=== PATIENT | female | born 1950 | race Caucasian/White ===

== ENCOUNTER 2022-10-05 08:59 | Outpatient (CLI) | payer MEDICARE, SELFPAY ==
--- NOTE | 2022-10-05 09:15 | CRLHL7_ITS ---
For Patients: As a result of the Cures Act, medical imaging exams and procedure reports are released immediately into your electronic medical record. You may view this report before your referring provider. If you have questions, please contact your health care provider. BILATERAL SCREENING MAMMOGRAM WITH COMPUTER-AIDED DETECTION AND TOMOSYNTHESIS TECHNIQUE: CC and MLO views were obtained. These mammographic images have been obtained using full-field digital technique. These mammographic images were interpreted with the benefit of computer-aided detection. Breast Tomosynthesis was used in this interpretation. COMPARISON FILM: 09/01/21, 04/29/20, 10/28/18. FINDINGS: There are scattered areas of fibroglandular density IMPRESSION: There is no radiographic evidence for malignancy. ASSESSMENT: BI-RADS Category 1: Negative RECOMMENDATION: Routine screening mammogram in 1 year. A lay language report of this examination will be provided to the patient. Devin Reyes M.D. Diagnostic Radiologist [email or web address] RONY/tang Transcribed: 5:20 p.mRosie beckwith/Dictated by: Devin Reyes MD @ 10/05/2022 1:07:00 PM (Electronically Signed)
== END 2022-10-05 09:00 | disposition home or self-care (01) ==
LOC: MAMMO 09:00
PROVIDERS: PCP Family Medicine; Visit Provider Family Medicine
DX: Z12.31 Encounter for screening mammogram for malignant neoplasm of breast (principal)
CPT/HCPCS: 77063; 77067

== ENCOUNTER 2023-10-08 08:56 | Outpatient (CLI) | payer MEDICARE, SELFPAY ==
--- OUTSIDE RECORDS SUMMARY | 2023-10-08 08:59 | XMS_ITS | Encounter Summary ---
Author Organization [facility] Address [address] [place] [address]. [place] [address] Care Team Providers Care Heel Lift Gouger Name Role Phone Estrella Day MD Primary Care Provider [phone] Austin Lynn MD Unavailable Austin Lynn MD Unavailable Encounter Details Date Type Department Care Team (Latest Contact Info) Description 09/25/2023 Travel Social History Tobacco Use Types Packs/Day Years Used Date Smoking Tobacco: Former Cigarettes 1 15 1 981 - 1995 Smokeless Tobacco: Never Comments:quit 1995. 20 yr hi story, 1`ppd Alcohol Use Standard Drinks/Week Comments Yes 0 (1 standard drink = 0.6 oz pur e alcohol) occasional Adolescent Education Answer Date Record ed Getting School Help Needed Not on file 01/21 Sex and Gender Information Value Date Recorded Sex Assigned at Female 08/08/2022 4:45 PM CDT Gender Identity Female 08/08/2022 4:45 PM CDT Sexual Orientation Not on file documented as of this encounter Plan of Treatment Upcoming Encounters Date Type Department Care Team (Late Contact Info) Description 11/05/2023 7:30 AM CDT Office Visit [facility] [place] [address] [facility] [address] [place] [phone] Lina Resendiz, MACYC [address] [facility] [address] [place] [address] documented as of this encounter Visit Diagnoses Not on filedocumented in this encounter Care Teams Heel Lift Gouger Relationship Specialty Start Date End Date Estrella Day MD PCP - General Family Practice 05/01/14 Austin Lynn MD [address] [place] [id number] Cardiovascular Disease 05/23/22 Austin Lynn MD [address] [place] [id number] Assigned Heart and Vascular Provider 08/12/22 documented as of this encounter
--- OUTSIDE RECORDS SUMMARY | 2023-10-08 08:59 | XMS_ITS | Clinical Summary ---
Author Organization [facility] Address [address] [place] [address] Care Team Providers Care Floor Covering Layer Name Role Phone Unavailable Primary Care Provider Unavailabl e Source Comments PLEASE NOTE, if this patient is a minor, it may be UNLAWFUL to discuss sensitive information that is contained in these records (such as FAMILY PLANNING, MENTAL HEALTH or SUBSTANCE ABUSE) with the minor patient's parent or other person without the patient's specific authorization.[facility] Social History Tobacco Use Types Packs/Day Years Used Date Smoking Tobacco: Never Assessed Sex and Gender Information Value Date Recorded Sex Assigned at Not on file Gender Identity Not on file Sexual Orientation Not on file Plan of Treatment Not on file
--- OUTSIDE RECORDS SUMMARY | 2023-10-08 08:59 | XMS_ITS | Referral Summary ---
Author Organization [facility] Address [address] [place] [address] Care Team Providers Care Sr. Strategic Sourcing Manager Name Role Phone Estrella Day MD Primary Care Provider [phone] Austin Lynn MD Unavailable Austin Lynn MD Unavailable Lina Resendiz PA-C Unavailable Encounters Date Type Department Care Team Description 10/01/2023 Travel 09/25/2023 Travel 09/25/2023 7:20 AM CDT Lab [facility] [address] [place] [phone] Essential hypertension; Pure hypercholesterolemia 09/20/2023 Travel 09/10/2023 Refill [facility] [place] [address] [place] [phone] Austin Lynn MD Refill Request (Losartan) 09/06/2023 Refill [place] [address] [place] [phone] Austin Lynn MD Refill Request (Simvastatin and Metoprolol) from Last 3 Months Allergies No known active allergies Medications Medication Sig Dispensed Refills Start Date End Date Status multivitamin w/minerals (THERA-VIT-M) tablet Take 1 tablet by mouth daily Active Flaxseed, Linseed, (FLAX SEED OIL) 1000 MG capsule Take 1 capsule by mouth 2 times daily Active Cholecalciferol (VITAMIN D) 1000 UNITS capsule Take 1 capsule by mouth daily Active valACYclovir (VALTREX) 500 MG tablet Take 500 mg by mouth daily Active aspirin 81 MG EC tablet Take 81 mg by mouth every evening Active simvastatin (ZOCOR) 40 MG tabletIndications: Paroxysmal atrial fibrillation (H) Take 1 tablet (40 mg) by mouth at bedtime 90 tablet 09/06/2023 Active metoprolol tartrate (LOPRESSOR) 100 MG tabletIndications: Paroxysmal atrial fibrillation (H) Take 1 tablet (100 mg) by mouth 2 times daily 180 tablet 09/06/2023 Active losartan (COZAAR) 100 MG tabletIndications: Essential hypertension Take 1 tablet (100 mg) by mouth at bedtime Appointment required for further refills 90 tablet 09/10/2023 Active losartan (COZAAR) 100 MG tabletIndications: Essential hypertension Take 1 tablet (100 mg) by mouth At Bedtime Appointment required for further refills 90 tablet 3 09/20/2022 4 Discontinue d(Reorder (No AVS)) Active Problems Problem Noted Date Diagnosed Date Atrial fibrillation Hypertension Bruit Hyperlipidemia Overview: Diagnosis updated by automated process. Provider to review and confirm. Social History Tobacco Use Types Packs/Day Years Used Date Smoking Tobacco: Former Cigarettes 1 15 1 1 - 1995 Smokeless Tobacco: Never Comments:quit 1995. [...] PM CDT Sexual Orientation Not on file Last Filed Vital Signs Vital Sign Reading Time Taken Comments Blood Pressure 144/76 08/09/2022 4:04 PM CDT Pulse 60 08/09/2022 3:51 PM CDT Temperature - - Respiratory Rate - - Oxygen Saturation 99% 08/09/2022 3:47 PM CDT Inhaled Oxygen Concentration - - Weight 71.5 kg (157 lb 9.6 oz) 08/09/2022 3:47 P M CDT Height 167.6 cm (5' 6) 09/25/2023 7:35 AM CDT Body Mass Index 25.44 08/09/2022 3:47 PM CDT Plan of Treatment Upcoming Encounters Date Type Department Care Team (Late st Contact Info) Description 11/05/2023 7:30 AM CDT Office Visit [facility] [place] [address] [facility] [address] [place] [phone] Lina Resendiz PA-C [address] [facility] [address] [place] [address] Procedures Procedure Name Priority Date/Time Associated Diagnosis Comments ALT Routine 09/25/2023 7:31 AM CDT Pure hypercholesterolemia LIPID PROFILE Routine 09/25/2023 7:31 AM CDT Pure hypercholesterolemia BASIC METABOLIC PANEL Routine 09/25/2023 7:31 AM CDT Essential hypertension C DIAGNOSTIC MAMMO DIGITAL LEFT, INCL CAD WHEN PERF Routine 07/30/2009 1:49 PM CDT from Last 3 Months or Most Recently Relevant to Health Maintenance Results * Lipid Profile (09/25/2023 7:31 AM CDT) Cholesterol 163 <200 mg/dL 09/25/2023 11:44 AM CDT [facility] Triglycerides 76 <150 mg/dL 09/25/2023 11:44 AM CDT [facility] Direct Measure HDL 65 >=50 mg/dL 2023 11:44 AM CDT [facility] LDL Cholesterol Calculated 83 <=100 mg/dL 09/25/2023 11:44 AM CDT [facility] Non HDL Cholesterol 98 <130 mg/dL 09/25/2023 11:44 AM CDT [facility] Patient Fasting > 8hrs? Yes 09/25/2023 11:44 AM CDT [facility] Blood STRUCTURE OF LEFT UPPER LIMB / Unknown Venipuncture / Unknown 09/25/2023 7:31 AM CDT 09/25/2023 7:31 AM CDT Narrative LABORATORY - 09/25/2023 11:44 AM CDT Cholesterol Desirable: ??<200 mg/dL Triglycerides Normal: ??Less than 150 mg/dL Borderline High: ??150-199 mg/dL High: ??200-499 mg/dL Very High: ??Greater than or equal to 500 mg/dL Direct Measure HDL Female: ??Greater than or equal to 50 mg/dL Male: ??Greater than or equal to 40 mg/dL LDL Cholesterol Desirable: ??<100mg/dL Above Desirable: ??100-129 mg/dL Borderline High: ??130-159 mg/dL High: ??160-189 mg/dL Very High: ??>= 190 mg/dL Non HDL Cholesterol Desirable: ??130 mg/dL Above Desirable: ??130-159 mg/dL Borderline High: ??160-189 mg/dL High: ??190-219 mg/dL Very High: ??Greater than or equal to 220 mg/dL Austin Lynn MD LAB - BLOOD ORDERABL ES LABORATORY [facility] [place] [facility] [address] [facility], [address] [place] [address], [facility] [address], [address] [place] [address], [facility] [phone] * ALT (09/25/2023 7:31 AM CDT) ALT 17 0 - 50 U/L 09/25/2023 7:5 4 AM CDT LABORATORY Blood STRUCTURE OF LEFT UPPER LIMB / Unknown Venipuncture / Unknown 09/25/2023 7:31 AM CDT 09/25/2023 7:31 AM CDT Austin Lynn MD LAB - BLOOD ORDERABL ES LABORATORY [facility] [address], [address] [place] [address], [facility] [phone] * (ABNORMAL) Basic metabolic panel (09/25/2023 7:31 AM CDT) Sodium 135 135 - 145 mmol/L 09/25/2023 7:54 AM CDT LABORATORY Comment:Reference intervals for this test were updated on 01/02/2023 to more accurately reflect our healthy population. There may be differences in the flagging of prior results with similar values performed with this method. Interpretation of those prior results can be made in the context of the updated reference intervals. Potassium 5.2 3.4 - 5.3 mmol/L 09/25/2023 7:54 AM CDT LABORATORY Chloride 99 98 - 107 mmol/L 09/25/2023 7:54 AM CDT LABORATORY Carbon Dioxide (CO2) 27 22 - 29 mmol/L 09/25/2023 7:54 AM T LABORATORY Anion Gap 9 7 - 15 mmol/L 09/25/2023 7:54 AM CDT LABORATORY Urea Nitrogen 9.7 8.0 - 23.0 mg/dL 09/25/2023 7:54 AM CDT LABORATORY Creatinine 0.79 0.51 - 0.95 mg/dL 09/25/2023 7:54 AM CDT LABORATORY GFR Estimate 80 >60 mL/min/1. 73m2 09/25/2023 7:54 AM T LABORATORY Comment:eGFR calculated us2020 CKD-EPI equation. Calcium 9.8 8.8 - 10.2 mg/dL 09/25/2023 7:54 AM T LABORATORY Glucose 102(H) 70 - 99 mg/dL 09/25/2023 7:54 AM T LABORATORY Blood STRUCTURE OF LEFT UPPER LIMB / Unknown Venipuncture / Unknown 09/25/2023 7:31 AM CDT 09/25/2023 7:31 AM CDT Austin Lynn MD LAB - BLOOD ORDERABL ES LABORATORY [facility] [address], [address] [place] [address], [facility] [phone] * DIAGNOSTIC MAMMO DIGITAL LEFT (07/30/2009 1:49 PM CDT) Anatomical Region Laterality Modality Other 07/30/2009 1:49 PM CDT Impressions 07/30/2009 1:51 PM CDT DIAGNOSTIC MAMMOGRAM, LEFT DIGITAL w/CAD HISTORY/COMPARISON: ??Abnormal screening suggests nodule BREAST PARENCHYMAL PATTERN: Heterogeneously dense. FINDINGS: Possible nodular density suggested on the screening mammogram in the left breast is due to overlapping breast tissue. IMPRESSION: BI-RADS 1, NEGATIVE. Trinidad Frye MD SPECIAL I MAGING STUDIES from Last 3 Months or Most Recently Relevant to Health Maintenance Care Teams Sr. Strategic Sourcing Manager Relationship Specialty Start Date End Date Estrella Day MD PCP - General Family Practice 05/01/14 Austin Lynn MD [address] [place] [address] Cardiovascular Disease 05/23/22 Austin Lynn MD [address] [place] [address] Assigned Heart and Vascular Provider 08/12/22 Lina Resendiz PA-C [address] [place] [address] Physician Lawn Caretaker Cardiovascular Disease 09/28/23
--- OUTSIDE RECORDS SUMMARY | 2023-10-08 08:59 | XMS_ITS | Clinical Summary ---
Author Organization [facility] Address [place], [place] [address] Care Team Providers Care Investment Manager Name Role Phone Estrella Day MD Primary Care Prov ider Allergies No known active allergies Medications Medication Sig Dispensed Refills Start Date End Date Status penciclovir (DENAVIR) 1 % cream Apply topically to affected area(s) every 2 hours. 1 Tube 3 06/24/2010 Active multivitamin (MVI) tablet Take 1 tablet by mouth once daily. 0 05/02/2011 Active flaxseed oil 1,000 mg Cap Take 1 capsule by mouth once daily. 0 05/02/2011 Active pimecrolimus (ELIDEL) 1 % creamIndications:Eczema Apply topically to affected area(s) 2 times daily. 15 g 0 12/12/2013 Active metoprolol (LOPRESSOR) 100 mg tabletIndications:Essenti al hypertension TAKE ONE TABLET BY MOUTH TWICE DAILY 180 tablet 0 02/09/2015 Active simvastatin (ZOCOR) 40 mg tabletIndications:Pure hypercholesterolemia TAKE ONE TABLET BY MOUTH NIGHTLY AT BEDTIME 30 tablet 0 04/04/2015 Active aspirin chewable (REGINE CHEWABLE ASPIRIN) 81 mg chewable tablet Take 1 tablet by mouth once daily with a meal. 0 04/21/2015 Active estradioL (ESTRACE) 0.01% (0.1 mg/g) vaginal creamIndications:Vaginal dryness Insert 1 g into the vagina once weekly. 42.5 g 3 05/01/2022 Active losartan (COZAAR) 100 mg tabletIndications:Essenti al hypertension Take 1 Tablet (100 mg) by mouth once daily. 90 Tablet 3 09/27/2022 Active valACYclovir (VALTREX) 500 mg tabletIndications:Herpes Take 1 Tablet (500 mg) by mouth once daily. 90 Tablet 3 02/21/2023 Active Active Problems Problem Noted Date Diagnosed Date Skin cancer 01/16/2022 Overview: Unsure what type. 2018 followed by dermatology Right inside ankle Bruit 12/18/2019 Hyperlipidemia 12/18/2019 Overview: Overview: Diagnosis updated by automated process. Provider to review and confirm. Abnormal thyroid screen (blood) 05/25/2009 Other psoriasis 04/26/2007 Pure hypercholesterolemia 01/20/2006 HYPERTENSION - ESSENTIAL 07/02/2003 Atrial fibrillation 07/02/2003 Overview: Holiday heart HOT FLASHES 07/02/2003 ALOPECIA AREATA 05/02/2001 Resolved Problems Problem Noted Date Diagnosed Date Resolved Date ONYCHOMYCOSIS 07/02/2003 05/25/2009 Overview: right thumb- not cultured, but Dermatology thought this was the case Immunizations Name Administration Dates Next Due COVID-19 Vaccine Spikevax (M oderna 50mcg/0.5mL) 12YO+ 0170-6945 Formula PF 02/21/2023 COVID-19 vaccine (Moderna 10 0mcg/0.5mL) PF, MDV 06/21/2020 COVID-19 vaccine (Pfizer-Bio NTech 30mcg/0.3mL) 12YO+ BIVALENT PF, MDV 01/16/2022 Influenza, High-dose Inactivated 03/18/2019 Influenza, High-dose Quadriv alent Inactivated 12/09/2019 Influenza, Inactivated AIIV4 (Age 65+ Years) Preserv Free 02/21/2023,01/16/2022,01/13/2021 Pneumococcal Conj 20-valent (Prevnar 20) 022 Pneumococcal Poly,23-Valent (Pneumovax) 12/18/19 20 Td (Age >=7 Years) 03/28/2004 Tdap 04/26/2012,05/25/2009 Zoster (Shingrix-RZV, recombinant) 04/12/2020, Family History Medical History Relation Name Comments Other Brother kidney transpla nt congenital Heart Disease Father Mi - in 60's , etoh, smoked Other Mother MS Good Health Sister 1 Good Health Sister 2 Good Health Sister 3 Relation Name Status Comments Brother Father Mother Sister 1 Sister 2 Sister 3 Social History Tobacco Use Types Packs/Day Years Used Date Smoking Tobacco: Former Smokeless Tobacco: Never Tobacco Cessation:Counseling Given: Yes Comments:quit in Alcohol Use Standard Drinks/Week Comments Yes 0 (1 standard drink = 0.6 oz pur e alcohol) 1 glass of wine twice weekly PHQ-2 Answer Date Recorded PHQ-2 TOTAL SCORE 0 02/21/2023 Social Connections Answer Date Recorded Frequency of Communication with Friends and Fami ly Not on file 04/09/2021 Financial Resource Strain Answer Date R ecorded Difficulty of Paying Living Expenses Not on file 04/09/2021 Difficulty of Paying Living Expenses Not on file 04/09/2021 Sex and Gender Information Value Date Recorded Sex Assigned at Not on file Gender Identity Not on file Sexual Orientation Straight 05/01/2022 10 :31 AM BRAND MARKETING INTERN Obstetrics History Para Term AB IAB SAB Ectopic Multiple Livin g Live Births 3 3 0 3 0 0 0 0 3 Date Outcome GA Total Labor Labor/2nd/3rd Weight Sex Type Anes PTL Jannie A1 A5 Name Clin Comments 1 child given up for adoptio n. Last Filed Vital Signs Vital Sign Reading Time Taken Comments Blood Pressure 130/78 02/21/2023 1:05 PM BRAND MARKETING INTERN Pulse 59 02/21/2023 12:50 PM BRAND MARKETING INTERN Temperature 37.2 ??C (99 ??F) 11/25/2019 1:00 PM CDT Respiratory Rate 12 06/13/2010 8:25 AM BRAND MARKETING INTERN Oxygen Saturation 100% 02/21/2023 12:50 PM BRAND MARKETING INTERN Inhaled Oxygen Concentration - - Weight 71.5 kg (157 lb 9.6 oz) 02/21/2023 12:50 PM BRAND MARKETING INTERN Height 168 cm (5' 6.14) 02/21/2023 12:50 PM BRAND MARKETING INTERN Body Mass Index 25.33 02/21/2023 12:50 PM BRAND MARKETING INTERN Plan of Treatment Health Maintenance Due Date Last Done Comments DEXA/DXA scan for age 65+ 2017 Tetanus booster 04/26/2022 04/26/2012, 05/10, 03/28/2004 Mammogram for age 45-75 09/01/2022 09/02/19 22, 04/29/2020, 10/28/2018, Additional history exists COVID-19 vaccine series (2022- season) 2023 02/21/2023, 01/16/2022, 02/03/2021, Additional history exists Influenza for age 65+ 12/09/2023 02/21/2023 , 01/16/2022, 01/13/2021, Additional history exists BMI (ht and wt on same day) for age 18+ 02/22/2024 02/21/2023, 01/16/2022, 01/13/2021, Additional history exists Depression screening for age 12+ 02/22/2024 02/21/2023, 01/16/2022, 01/13/2021, Additional history exists Medicare Wellness for age 65+ 02/22/2024, 01/16/2022, 01/13/2021 Fecal testing non-DNA (FIT,FOBT,iFOBT) for age 45-75 04/06/2024 04/06/2023, 12/23/2019, 05/31/2016, Additional history exists Lipids for age 45-75 12/17/2024 12/18/2019, 04/16/2015, 12/09/2013, Additional history exists Tdap Completed 04/26/2012, 05/25/2009 Hepatitis C screening for ag e 18-79 Completed 12/18/2019 Zoster (shingles) series for age 50+ Completed 04/12/2020, 12/18/2019 Pneumococcal series for age 65+ Completed , 12/18/2019 Procedures Procedure Name Priority Date/Time Associated Diagnosis Comments OCCULT BLOOD IFOBT STOOL Routine 04/06/2023 7:34 AM BRAND MARKETING INTERN Screening for colon cancer SCAN-MAMMOGRAPHY REPORT 09/01/2021 12:00 AM CDT ANTI HCV Routine 12/18/2019 10:25 AM CDT Encounter for hepatitis C screening test for low risk patient LIPID PANEL Routine 12/18/2019 10:25 AM CDT Hyperlipidemia, unspecified hyperlipidemia type from Last 3 Months or Most Recently Relevant to Health Maintenance Results * OCCULT BLOOD IFOBT STOOL (04/06/2023 7:34 AM BRAND MARKETING INTERN) STOOL BLOOD ,IFOBT Negative Negative 04/13/2023 11:28 AM BRAND MARKETING INTERN [facility] Stool STOOL SPECIMEN / Unknown Non-Blood / Unknown 04/06/2023 7:34 AM BRAND MARKETING INTERN 04/12/2023 7:34 AM BRAND MARKETING INTERN Jailene [facility] [address] [place] [address], * SCAN-MAMMOGRAPHY REPORT (09/01/2021 12:00 AM CDT) Anatomical Region Laterality Modality Other Scanner OTHER * ANTI HCV (12/18/2019 10:25 AM CDT) Pathologist [facility] HEPATITIS C ANTIBODY Non-React stephanie Non-React stephanie 12/18/2019 6:15 PM CDT [facility] Comment:Antibodies to HCV no t detected; does not exclude the possibility of exposure to HCV. Blood BLOOD SPECIMEN / Unknown Venipuncture / Unknown 12/18/2019 10:25 AM CDT 12/18/2019 10:29 AM CDT Davina Finnegan MD SEND OUTS [facility] [address] [place] [address], [place] * LIPID PANEL (12/18/2019 10:25 AM CDT) Pathologist [facility] CHOLESTEROL,TOTAL 195 100 - 199 mg/dL 12/18/2019 5:54 PM CDT [facility] TRIGLYCERIDES 145 <150 mg/dL 12/18/2019 5:54 PM CDT [facility] HDL CHOLESTEROL 64 >40 mg/dL 0 5:54 PM CDT [facility] NON-HDL CHOLESTEROL 131 <145 mg/dl 12/18/2019 5:54 PM CDT [facility] CHOL/HDL RATIO 3.05 <4.50 12/18/2019 5:54 PM CDT [facility] LDL CHOLESTEROL 102 <=130 mg/dL 12/18/2019 5:54 PM CDT [facility] TR[facility] PROVIDER ORDERED STATUS RANDOM 12/18/2019 5:54 PM CDT [facility] Blood BLOOD SPECIMEN / Unknown Venipuncture / Unknown 12/18/2019 10:25 AM CDT 12/18/2019 10:29 AM CDT Davina Finnegan MD CHEMISTRY [facility] [address] [place] [address], from Last 3 Months or Most Recently Relevant to Health Maintenance Care Teams Investment Manager Relationship Specialty Start Date End Date Estrella Day MD [address] [place] [address] PCP - General Family Practice 04/26/11
--- OUTSIDE RECORDS SUMMARY | 2023-10-08 08:59 | XMS_ITS | Clinical Summary ---
Author Organization [facility] Address [address] [place] [address] Care Team Providers Care Bankruptcy Manager Name Role Phone Estrella Day MD Primary Care Provider [phone] Austin Lynn MD Unavailable [phone] Austin Lynn MD Unavailable Lina Resendiz PA-C Unavailable Allergies No known active allergies Medications Medication [...] for further refills 90 tablet 3 09/20/2022 Discontinue d(Reorder (No AVS)) Active Problems Problem Noted Date Diagnosed Date Atrial fibrillation Hypertension Bruit Hyperlipidemia Overview: Diagnosis updated by automated process. Provider to review and confirm. Encounters Date Type Department Care Team Description 10/01/2023 Travel 09/25/2023 7:20 AM CDT Lab [facility] [address] [place] [phone] Essential hypertension; Pure hypercholesterolemia 09/25/2023 Travel 09/20/2023 Travel 09/10/2023 Refill [facility] [address] [place] [phone] Austin Lynn MD Refill Request (Losartan) 09/06/2023 Refill [facility] [address] [place] [phone] Austin Lynn MD Refill Request (Simvastatin and Metoprolol) from Last 3 Months Family History Medical History Relation Comments Kidney Disease Brother transplant Coronary Artery Disease Father Relation Status Comments Brother Alive Father (Age 65) [place] Mother (Age 67) [place] Social History Tobacco Use Types Packs/Day Years [...] Description 11/05/2023 7:30 AM CDT Office Visit [facility] [place] [address] [place], [place] [phone] More, Lina Smith PA-C [address] [place] [id number] Health Maintenance Due Date Last Done Comments ADVANCE CARE PLANNING 1950 ANNUAL REVIEW OF HM ORDERS [address] CT COLONOGRAPHY 1950 DEXA 1950 FLEX SIG 1950 sDNA (Cologuard) 1950 COLONOSCOPY 1962 HEPATITIS C SCREENING 1970 LUNG CANCER SCREENING 2002 MAMMO SCREENING 07/31/2011 07/30/2009, 07/09, 07/27/2008, Additional history exists RSV VACCINE ( & 60+) (1 - 1-dose 60+ series) 2012 FALL RISK ASSESSMENT 2017 DTAP/TDAP/TD IMMUNIZATION (3 - Td or Tdap) 04/26/2022 04/26/2012, 05/25/2009, 03/28/2004 PHQ-2 (once per calendar year) 2023 COVID-19 Vaccine ( season) 2023 02/21/2023, 01/16/2022, 02/03/2021, Additional history exists MEDICARE ANNUAL WELLNESS VISIT 02/22/2024 02/21/2023, 01/16/2022, 01/13/2021, Additional history exists COLORECTAL CANCER SCREENING 04/06/2024 FIT 04/06/2024 04/06/2023 LIPID 09/24/2024 09/25/2023, 05/0 05/2022, 08/15/2021, Additional history exists GLUCOSE 09/24/2026 09/25/2023, 05/0 05/2022, 08/15/2021, Additional history exists ZOSTER IMMUNIZATION Completed 04/12/2020, Pneumococcal Vaccine: 65+ Years Completed 01/16/2022, 12/18/2019 INFLUENZA VACCINE Completed 02/21/2023, , 01/13/2021, Additional history exists HPV IMMUNIZATION Aged Out No longer e ligible based on patient's age to complete this topic IPV IMMUNIZATION Aged Out No longer e ligible based on patient's age to complete this topic MENINGITIS IMMUNIZATION Aged Out No l onger eligible based on patient's age to complete this topic RSV MONOCLONAL ANTIBODY Aged Out No l onger eligible based on patient's age to complete this topic Procedures Procedure Name Priority Date/Time Associated Diagnosis [...] > 8hrs? Yes 09/25/2023 11:44 AM CDT LABORATORY Blood STRUCTURE OF LEFT [...] Lynn MD LAB - BLOOD ORDERABL ES U LABORATORY [facility] [address] [facility] [facility] [address], [address] [place] [address], [facility] LABORATORY [facility] Lab [address] 1st floor, [address] [place] [address], [facility] [[email or web address]] [phone] * ALT (09/25/2023 7:31 AM CDT) ALT 17 0 - 50 U/L 09/25/2023 7:5 4 AM CDT LABORATORY Blood STRUCTURE OF LEFT UPPER LIMB / Unknown Venipuncture / Unknown 09/25/2023 7:31 AM CDT 09/25/2023 7:31 AM CDT Austin Lynn MD LAB - BLOOD ORDERABL ES LABORATORY [facility] [address] 1[address] floor, [address] [place] [address], [facility] [[email or web address]] [phone] * (ABNORMAL) Basic metabolic panel (09/25/2023 7:31 [...] 22 - 29 mmol/L 09/25/2023 7:54 AM CDT LABORATORY Anion Gap 9 7 - 15 mmol/L 09/25/2023 7:54 AM CDT LABORATORY Urea Nitrogen 9.7 8.0 - 23.0 mg/dL 09/25/2023 7:54 AM CDT LABORATORY Creatinine 0.79 0.51 - 0.95 mg/dL 09/25/2023 7:54 AM CDT LABORATORY GFR Estimate 80 >60 mL/min/1. 73m2 09/25/2023 7:54 AM CDT LABORATORY Comment:eGFR calculated usin 2020 CKD-EPI equation. Calcium 9.8 8.8 - 10.2 mg/dL 09/25/2023 7:54 AM T LABORATORY Glucose 102(H) 70 - 99 mg/dL 09/25/2023 7:54 AM [facility] LABORATORY Blood STRUCTURE OF LEFT UPPER LIMB / Unknown Venipuncture / Unknown 09/25/2023 7:31 AM CDT 09/25/2023 7:31 AM CDT Austin Lynn MD LAB - BLOOD ORDERABL ES SH LABORATORY [facility] Lab [address] 1st floor, [address] [place] [address], [facility] [[email or web address]] [phone] * DIAGNOSTIC MAMMO DIGITAL LEFT (07/30/2009 1:49 [...] Recently Relevant to Health Maintenance Care Teams Bankruptcy Manager Relationship Specialty Start Date End Date Estrella Day MD PCP - General Family Practice 05/01/14 Austin Lynn MD [address] [place] [phone] Cardiovascular Disease 05/23/22 Austin Lynn MD [address] [place] [address] Assigned Heart and Vascular Provider 08/12/22 Lina Resendiz PA-C [address] [place] [address] Physician Case Management Social Worker Cardiovascular Disease 09/28/23
--- OUTSIDE RECORDS SUMMARY | 2023-10-08 08:59 | XMS_ITS | Encounter Summary ---
Author Organization [facility] Address [address] [place] [address] Care Team Providers Care Vp Mobile Products Name Role Phone Estrella Day MD Primary Care Provider [phone] Austin Lynn MD Unavailable Austin Lynn MD Unavailable Lina Resendiz-C Unavailable Encounter Details Date Type Department Care Team (Latest Contact Info) Description 10/01/2023 Travel Social History Tobacco Use Types Packs/Day [...] Description 11/05/2023 7:30 AM CDT Office Visit [facility] [place] [address] [facility] [address] [place] [phone] Lina Resendiz PA-C [address] [facility] [address] [place] [address] documented as of this encounter Visit Diagnoses Not on filedocumented in this encounter Care Teams Vp Mobile Products Relationship Specialty Start Date End Date Estrella Day MD PCP - General Family Practice 05/01/14 Austin Lynn MD [address] [place] [address] Cardiovascular Disease 05/23/22 Austin Lynn MD [address] [place] [address] Assigned Heart and Vascular Provider 08/12/22 Lina Resendiz PA-C [address] [place], [place] [address] Physician Candy Separator Enrobing Cardiovascular Disease 09/28/23 documented as of this encounter
--- OUTSIDE RECORDS SUMMARY | 2023-10-08 09:00 | XMS_ITS | Encounter Summary ---
Author Organization [facility] Address [address] [place] [address]. [place] [address] Care Team Providers Care Pick Pulling Machine Tender Name Role Phone Estrella Day MD Primary Care Provider [phone] Austin Lynn MD Unavailable [phone] Austin Lynn MD Unavailable Reason for Visit * Reason Onset Date Comments Refill Request 09/10/2023 Losartan Encounter Details Date Type Department Care Team (Late st Contact Info) Description 09/10/2023 Refill [facility] [place] [phone] [facility] [address] [place] [address] Austin Lynn MD [address] [facility] [address] [place], [place] [phone] Refill Request (Losartan) Social History Tobacco Use Types Packs/Day Years [...] on file documented as of this encounter Miscellaneous Notes * Telephone Encounter - Fanny Bassett, RN - 09/10/2023 2:38 PM CDT [facility] Cardiology Refill Guideline reviewed. Medication meets criteria for refill. documented in this encounter Plan of Treatment Upcoming Encounters Date Type Department Care Team (Late st Contact Info) Description 11/05/2023 7:30 AM CDT Office Visit [facility] [place] [address] [facility] [address] [place] [address] Lina Resendiz PA-C [address] [place] [address] documented as of this encounter Visit Diagnoses Diagnosis Essential hypertension Unspecified essential hypertension documented in this encounter Care Teams Pick Pulling Machine Tender Relationship Specialty Start Date End Date Estrella Day MD PCP - General Family Practice 05/01/14 Austin Lynn MD [address] [place] [address] Cardiovascular Disease 05/23/22 Austin Lynn MD [address] [place] [address] Assigned Heart and Vascular Provider 08/12/22 documented as of this encounter
--- OUTSIDE RECORDS SUMMARY | 2023-10-08 09:00 | XMS_ITS | Encounter Summary ---
Author Organization [facility] Address [address] [place] [address] Care Team Providers Care Grader Operator Name Role Phone Estrella Day MD Primary Care Provider [phone] Austin Lynn MD Unavailable Cee Guerra APRN SERVICE CENTER MANAGER Unavailable [phone] Austin Lynn MD Unavailable Austin Lynn MD Unavailable Lina ResendizC Unavailable Encounter Details Date Type Department Care Team (Late st Contact Info) Description 04/21/2003 Office Visit-[facility] [address] [place] [address] Unknown, MD Reece Social History Tobacco Use Types Packs/Day Years Used Date Smoking Tobacco: Never Assessed Sex and Gender Information Value Date Recorded Sex Assigned at Female 08/08/2022 4:45 PM CDT Gender Identity Female 08/08/2022 4:45 PM CDT Sexual Orientation Not on file documented as of this encounter Progress Notes * Unknown, MD Reece - 04/23/2003 7:29 AM CST Progress Note Created by: Diana Little DATE: 04/21/2003 ZAKI ELLIOTT DATE OF : 1950 AGE: [age] years old Referring Physician: SANTHOSH CEBALLOS Referring Clinic: [facility] CURRENT DIAGNOSES 1. - Atrial Fibrillation, 427.31 2. - Hypertension, benign, 401.1 ALLERGIES NKA MEDICATIONS 1. Lo/Ovral 30 mcg-0.3 mg, Take as Directed 2. Metoprolol Tartrate 100 mg, 1 p.o. b.i.d. CHIEF COMPLAINTS Followup of Bp and Followup of Meds HISTORY OF PRESENT ILLNESS Ms. Elliott is a very delightful 52-year-old female who presents today for a follow up regarding hypertension and atrial fibrillation. She informs me that she has been seeing her primary doctor in follow up regarding hypertension, and her primary doctor instructed her to come back to Cardiology Clinic for further evaluation as her blood pressure has been in the 140s and 150s consistently when it is measured at the PMD's office. On initial presentation today, her blood pressure is 132/80. By my recheck it was 144/82. Our goal with this patient would be less than 135 over less than 85. She feelswell at this time and has not had any recurrence of atrial fibrillation. In addition, she brings inher lipid results for my review. The only number that was slightly elevated was her LDL at 160. Theremainder of her numbers are within normal limits. She denies the presence of any chest pain or pressure. No palpitations, syncope, presyncope, PND, orthopnea, or pedal edema. 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 EYES wears eye glasses/contact lenses EARS, NOSE, THROAT, MOUTH denies any hearing loss, epistaxis, hoarseness or difficulty speaking. RESPIRATORY denies dyspnea, snoring, cough, wheezing or hemoptysis. CARDIOVASCULAR negative for palpitations, chest pain, orthopnea, PND, peripheral edema, syncope or claudication. ABDOMINAL denies ulcer disease, hematochezia or melena. MUSCULOSKELETAL denies any history of venous insufficiency, arthritic symptoms or back problems. NEUROLOGICAL denies any history of recurrent strokes, TIA, or seizure disorder. PSYCHIATRIC denies any history of depression, substance abuse or change in cognitive functions. ENDOCRINE denies any history of weight change, heat/cold intolerance, polydipsia, or polyuria HEMATOLOGICAL/IMMUNOLOGIC denies any food allergies, seasonal allergies, bleeding disorders. PHYSICAL EXAMINATION VITAL SIGNS: Blood Pressure: 132/80 Sitting, Left arm, regular cuff 144/82 Retaken by FUNMILAYO Pulse- 64.00/min. Weight- 135.00 lbs. Height- 66.00 Temperature- .00 CONSTITUTIONAL cooperative, alert and oriented,well developed, well nourished, in no acute distress. SKIN warm and dry to touch, no apparent skin lesions, or masses noted. HEAD normocephalic, atraumatic EYES Pupils equal and round, conjunctivae and lids unremarkable, sclera white, no xanthalasma ENT no pallor or cyanosis, dentition good NECK carotid pulses are full and equal bilaterally, JVP normal, no carotid bruit, no thyromegaly CHEST clear to auscultation CARDIAC grade 1/6 systolic murmur heard best at the apex ABDOMEN abdomen soft, bowel sounds normoactive, no masses, no hepatosplenomegaly, non- tender, no bruits PERIPHERAL PULSES pulses full and equal in all extremities, no bruits auscultated. EXTREMITIES & BACK no clubbing, cyanosis or edema NEUROLOGICAL no gross motor deficits noted, affect appropriate, oriented to time, person and place. MEDICATIONS UPDATED TODAY: Metoprolol Tartrate 100 mg, 1 p.o. b.i.d., #60 MEDICATION STOPPED TODAY: Metoprolol Tartrate 50 Mg IMPRESSIONS/PLAN 1. Hypertension, currently under poor control. I will increase her metoprolol to 100 mg b.i.d. and ask that she continue to follow with her primary doctor for evaluation. She will contact our clinic on a p.r.n. basis. 2. Atrial fibrillation, currently under very good control. She has not had any recurrence. Willard Little. documented in this encounter Plan of Treatment Upcoming Encounters Date Type Department Care Team (Late st Contact Info) Description 11/05/2023 7:30 AM CDT Office Visit [facility] [address] [facility] [address] [place] [phone] Astrid, Lina Smith PA-C [address] [place] [address] [address] [place] [address] documented as of this encounter Visit Diagnoses Not on filedocumented in this encounter Care Teams Grader Operator Relationship Specialty Start Date End Date Estrella Day MD PCP - General Family Practice 05/01/14 Austin Lynn MD [address] [place] [address] Assigned Heart and Vascular Provider 01/30/20 08/20/21 Cee Guerra APRN CNP [address] [place] [address] Assigned Heart and Vascular Provider 08/21/21 07/07/22 Austin Lynn MD [address] [place] [address] Cardiovascular Disease 05/23/22 Austin Lynn MD [address] [place] [address] Assigned Heart and Vascular Provider 08/12/22 Lina Resendiz PA-C [address] [place], [place] [address] Physician Granite Sandblaster Apprentice Cardiovascular Disease 09/28/23 documented as of this encounter
--- OUTSIDE RECORDS SUMMARY | 2023-10-08 09:00 | XMS_ITS | Encounter Summary ---
Author Organization [facility] Address [address] [place] [address] Care Team Providers Care Pyrotechnic Mixer Name Role Phone Estrella Day MD Primary Care Provider [phone] Austin Lynn MD Unavailable [phone] Cee Guerra APRN PODIATRIC ASSISTANT Unavailable [phone] Austin Lynn MD Unavailable Austin Lynn MD Unavailable Lina ResendizC Unavailable Encounter Details Date Type Department Care Team (Late st Contact Info) Description 02/09/2005 Office Visit-[facility] [address] [place] [address] Unknown, MD Reece Social History Tobacco Use Types Packs/Day Years Used Date Smoking Tobacco: Never Assessed Sex and Gender Information Value Date Recorded Sex Assigned at Female 08/08/2022 4:45 PM CDT Gender Identity Female 08/08/2022 4:45 PM CDT Sexual Orientation Not on file documented as of this encounter Progress Notes * Unknown, MD Reece - 02/10/2005 3:14 PM CST Progress Note Created by: Taj Fortune M.D. DATE: 02/09/2005 ZAKI ELLIOTT DATE OF : 1950 AGE: [age] years old Referring Physician: SANTHOSH CEBALLOS Referring Clinic: [facility] CURRENT DIAGNOSES 1. - Atrial Fibrillation, 427.31 2. - Hypertension, benign, 401.1 ALLERGIES NKA MEDICATIONS (including any changes made today) 1. Lo/Ovral 30 mcg-0.3 mg, Take as Directed 2. Maribel-Dec Multiple Vitamins with Minerals, 1 p.o. q.d. 3. Metoprolol Tartrate 100 Mg, 1 p.o. b.i.d. 4. Lipitor 10 mg, 1 p.o. q.d. CHIEF COMPLAINTS Per MD - follow up HISTORY OF PRESENT ILLNESS Ms. Elliott is returning for refills on her medications. She has had a totally uneventful year with absolutely no sensations of arrhythmias. She remains quite confident she is exquisitely sensitive toepisodes of atrial fibrillation that have occurred multiple times locally as well as out of state. She has ended up in the emergency room and would just as soon avoid another repeat occurrence. She is perfectly content taking her metoprolol twice a day, has no side effects whatsoever. I offered isacc chance to either decrease her dose or stop it to test herself but she does not want to have any part of that because she is perfectly content taking her medicines. We also touched upon atrial fibrillation ablation in case she has read about this, reserving this for a period of time if and when she becomes refractory to medicine and becomes more symptomatic. Certainly the risk of the procedure outweighs any benefit at this point in time. She is now on Lipitor for hyperlipidemia. Her blood pressure is well controlled. She takes a 3 milewalk every day over the noon time and feels great. She sleeps well. There have been no other interval medical problems. 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 INTEGUMENTARY denies any change in hair or [...] disorders. PHYSICAL EXAMINATION VITAL SIGNS: Blood Pressure: / 110/70 Sitting, Left arm, regular cuff Pulse- 60.00/min. Weight- 142.00 lbs. Height- 66.00 Temperature- .00 CONSTITUTIONAL cooperative, [...] carotid bruit, no thyromegaly CHEST clear to auscultation, mild parasternal tenderness to palpations CARDIAC grade 1/6 systolic murmur heard best at the apex ABDOMEN abdomen soft, bowel sounds normoactive, no masses, no hepatosplenomegaly, non- tender, no bruits <FONT COLOR=#[id number]><FONT POINT=10> PERIPHERAL PULSES pulses full and equal in all extremities, no bruits auscultated. EXTREMITIES & BACK no clubbing, cyanosis or edema NEUROLOGICAL no gross motor deficits noted, affect appropriate, oriented to time, person and place. MEDICATIONS UPDATED TODAY: Metoprolol Tartrate 100 Mg, 1 p.o. b.i.d., #60 Lipitor 10 mg, 1 p.o. q.d., DIRECTED IMPRESSIONS/PLAN <FONT COLOR=#[id number]><FONT POINT=10> 1. Well controlled hypertension. 2. History of episodic atrial fibrillation possibly stress related but again well controlled on beta-blockers where she would like to stay on them. PLAN: 1. Metoprolol was renewed. 2. I will not plan on seeing her other than for her medication refills unless requested or if she should have any interval problems. <FONT COLOR=#[id number]><FONT POINT=10> TODAYS ORDERS 1. F/U with Sherin or Alexia for rx refills Taj Fortune M.D. documented in this encounter Plan of Treatment Upcoming Encounters Date Type Department Care Team (Late st Contact Info) Description 11/05/2023 7:30 AM CDT Office Visit [facility] [place] [address] [place] [phone] Lina Resendiz PA-C [address] [place] [phone] documented as of this encounter Visit Diagnoses Not on filedocumented in this encounter Care Teams Pyrotechnic Mixer Relationship Specialty Start Date End Date Estrella Day MD PCP - General Family Practice 05/01/14 Austin Lynn MD [address] [place] [address] Assigned Heart and Vascular Provider 01/30/20 08/20/21 Cee Guerra APRN PODIATRIC ASSISTANT [address] [place] [address] Assigned Heart and Vascular Provider 08/21/21 07/07/22 Austin Lynn MD [address] [place] [address] Cardiovascular Disease 05/23/22 Austin Lynn MD [address] [place] [phone] Assigned Heart and Vascular Provider 08/12/22 Lina Resendiz PA-C [address] [place] [address] Physician Dedicated Driver Cardiovascular Disease 09/28/23 documented as of this encounter
--- OUTSIDE RECORDS SUMMARY | 2023-10-08 09:00 | XMS_ITS | Encounter Summary ---
Author Organization [facility] Address [address] [place] [address]. [place] [address] Care Team Providers Care Electronic Warfare Technical Name Role Phone Estrella Day MD Primary Care Provider [phone] Austin Lynn MD Unavailable Cee Guerra APRN ROGUER Unavailable [phone] Austin Lynn MD Unavailable Austin Lynn MD Unavailable [phone] Lina ResendizC Unavailable [phone] Encounter Details Date Type Department Care Team (Late st Contact Info) Description 02/23/2010 Office Visit-[facility] [place] [address] [facility] [address] [place] [address] Austin Lynn MD [address] [facility] [address] [place], [place] [address] Social History Tobacco Use Types Packs/Day Years Used Date Smoking Tobacco: Never Assessed Sex and Gender Information Value Date Recorded Sex Assigned at Female 08/08/2022 4:45 PM CDT Gender Identity Female 08/08/2022 4:45 PM CDT Sexual Orientation Not on file documented as of this encounter Progress Notes * Austin Lynn MD - 02/25/2010 10:49 AM CST Progress Note Created by: Austin Lynn M.D. DATE: 02/23/2010 JENNYFER ELLIOTT DATE OF : 1950 AGE: [age] years old Referring Physician: SANTHOSH CEBALLOS Referring Clinic: [facility] CURRENT DIAGNOSES 1. - Atrial Fibrillation, 427.31 2. - Hypertension, benign, 401.1 ALLERGIES NKA MEDICATIONS (prior to changes made today) 1. Daily Multivitamin Tablet, 1 p.o. q.d. 2. Prempro 0.3-1.5 mg Tablet, 1 p.o. q.d. 3. Flaxseed Oil 1,000 mg Capsule, 1 p.o. q.d. 4. Lipitor 10 Mg Tablet, 1 p.o. q.d. 5. Metoprolol Tartrate 100 Mg Tablet, 1 p.o. b.i.d. CHIEF COMPLAINTS Annual follow up HISTORY OF PRESENT ILLNESS I had the opportunity to see Ms. Jennyfer Elliott in the Cardiology Clinic today for reevaluation ofparoxysmal atrial fibrillation. As you know, she is a 59-year-old woman who had several episodes ofatrial fibrillation in 2001 and 2002. She was started on metoprolol at that time and has not had any recurrent episodes of atrial fibrillation since 2002. She is currently on metoprolol 100 mg p.o b.i.d and is tolerating it well. She has no symptoms of chest discomfort, shortness of breath, lightheadedness, or syncope. She has no palpitations. On examination today, her blood pressure was 140/84. Heart rate was 58. Weight was 143 pounds. Her lungs were clear. Heart rhythm was regular. She has no cardiac murmurs. No carotid bruits. 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 EYES wears eye glasses/contact lenses, no blurred vision, eye pain, or discharge. EARS, NOSE, THROAT, MOUTH denies any hearing loss, epistaxis, hoarseness or difficulty speaking. RESPIRATORY denies dyspnea, snoring, cough, wheezing or hemoptysis. CARDIOVASCULAR negative for palpitations, chest pain, orthopnea, PND, peripheral edema, syncope or claudication. ABDOMINAL denies ulcer disease, hematochezia or melena. GENITOURINARY-FEMALE positive for frequency, positive for nocturia, regular periods MUSCULOSKELETAL denies any history of venous insufficiency, arthritic symptoms or back problems. NEUROLOGICAL denies any history of recurrent strokes, TIA, or seizure disorder. PSYCHIATRIC denies any history of depression, substance abuse or change in cognitive functions. ENDOCRINE denies any history of weight change, heat/cold intolerance, polydipsia, or polyuria HEMATOLOGICAL/IMMUNOLOGIC denies any food allergies, seasonal allergies, bleeding disorders. PHYSICAL EXAMINATION VITAL SIGNS: Blood Pressure: 140/84Sitting, Left arm, regular cuff Pulse- 58.00/min. Weight- 143.60 lbs. Height- 66.00 Temperature- .00 CONSTITUTIONAL cooperative, [...] auscultation, mild parasternal tenderness to palpations CARDIAC no murmurs, gallops or rubs detected, normal 1st and 2nd heart sounds, regular rhythm ABDOMEN abdomen soft, bowel sounds normoactive, no masses, no hepatosplenomegaly, non- tender, no bruits PERIPHERAL PULSES pulses full and equal in all extremities, no bruits auscultated. EXTREMITIES & BACK no clubbing, cyanosis or edema NEUROLOGICAL no gross motor deficits noted, affect appropriate, oriented to time, person and place. MEDICATIONS UPDATED/STARTED TODAY: Lipitor 10 Mg Tablet, 1 p.o. q.d., #90 Metoprolol Tartrate 100 Mg Tablet, 1 p.o. b.i.d., #180 MEDICATIONS REFILLED/STOPPED TODAY: Metoprolol Tartrate 100 mg Tablet 1 p.o. b.i.d. #180 Refill and Lipitor 10 mg Tablet 1 p.o. q.d. ASDIRECTED Refill IMPRESSIONS/PLAN Ms. Jennyfer Elliott is a 59-year-old woman with paroxysmal atrial fibrillation, although she has not had any symptomatic atrial fibrillation since 2002. She has been taking metoprolol consistently, and this seems to be helping prevent further episodes of atrial fibrillation. She has also cutback onher caffeine and alcohol use, which likely has made a difference as well. She wants to continue hercurrent regimen. I see no problem with that. It may be helping to control her blood pressure as well, which is somewhat marginal today. She is on Lipitor for dyslipidemia. I have refilled her prescriptions. I have suggested that she seek emergency treatment for any recurrent episodes of atrial fibrillation if they do not resolve spontaneously. Otherwise, I will plan to see her back again in one year. TODAYS ORDERS 1. F/U with Diana Little 1 year 2. F/U with Austin Lynn MD 2 years Austin Lynn M.D. documented in this encounter Plan of Treatment Upcoming Encounters Date Type Department Care Team (Late st Contact Info) Description 11/05/2023 7:30 AM CDT Office Visit [facility] [place] [address] [facility] [address] [place] [phone] Lina Resendiz PA-C [address] [facility] [place] [id number] documented as of this encounter Visit Diagnoses Not on filedocumented in this encounter Care Teams Electronic Warfare Technical Relationship Specialty Start Date End Date Estrella Day MD PCP - General Family Practice 05/01/14 Austin Lynn MD [address] [place] [address] Assigned Heart and Vascular Provider 01/30/20 08/20/21 Cee Guerra APRN ROGUER [address] Eduardo [place] [address] Assigned Heart and Vascular Provider 08/21/21 07/07/22 Austin Lynn MD [address] [place] [address] MD Cardiovascular Disease 05/23/22 Austin Lynn MD [address] [place] [address] Assigned Heart and Vascular Provider 08/12/22 Lina Resendiz PA-C [address] [place] [address] Physician Switchboard Receptionist Cardiovascular Disease 09/28/23 documented as of this encounter
--- OUTSIDE RECORDS SUMMARY | 2023-10-08 09:00 | XMS_ITS | Encounter Summary ---
Author Organization [facility] Address [address] [place] [address] Care Team Providers Care Lead Housekeeper Name Role Phone Estrella Day MD Primary Care Provider [phone] Austin Lynn MD Unavailable Cee Guerra APRN SUPERVISOR INDUSTRIAL GARMENT Unavailable [phone] Austin Lynn MD Unavailable Austin Lynn MD Unavailable Lina ResendizC Unavailable [phone] Encounter Details Date Type Department Care Team (Late st Contact Info) Description 02/21/2011 Office Visit-[facility] [address] [place] [phone] Angela Green, QUILT MAKER SUPERVISOR INDUSTRIAL GARMENT Social History Tobacco Use Types Packs/Day Years Used Date Smoking Tobacco: Never Assessed Sex and Gender Information Value Date Recorded Sex Assigned at Female 08/08/2022 4:45 PM CDT Gender Identity Female 08/08/2022 4:45 PM CDT Sexual Orientation Not on file documented as of this encounter Progress Notes * Angela Green, VIPUL - 02/28/2011 12:57 PM CST Progress Note Created by: Angela Green. N.P. DATE: 02/21/2011 ZAKI ELLIOTT DATE OF : 1950 AGE: [age] years old Referring Physician: STACY GOODMAN Referring Clinic: [facility] CURRENT DIAGNOSES 1. - Atrial Fibrillation, 427.31 2. - Hypertension, benign, 401.1 ALLERGIES NKA MEDICATIONS (prior to changes made today) 1. Daily Multivitamin Tablet, 1 p.o. daily 2. Flaxseed Oil 1,000 Mg Capsule, 1 p.o. daily 3. Lipitor 10 mg Tablet, 1 p.o. daily 4. metoprolol tartrate 100 mg Tablet, 1 p.o. twice daily 5. Prempro 0.3-1.5 Mg Tablet, 1 p.o. daily CHIEF COMPLAINTS HISTORY OF PRESENT ILLNESS Ms. Elliott is a delightful 60-year-old female who presents in cardiology clinic today to annual follow-up regarding her history of atrial fibrillation. In 2001 and 2002, she had several episodes of paroxysmal atrial fibrillation and was started on metoprolol at that time. Since 2002 she has not hadany recurrent episodes of atrial fibrillation. She continues on metoprolol 100 mg by mouth twice daily and is tolerating it well. She reports that over the past year she has done quite well without any significant medical problems. She is in the process of converting her primary care services to the [facility] site in [place]. She denies any symptoms of chest pain or pressure, she has no palpitations, no light-headedness, dizziness, presyncope, syncope, PND, orthopnea, shortness of breath, or dyspnea on exertion. She also remains on Lipitor therapy at 10 mg for hypercholesterolemia. She reports that this is quite expensive for her and asks if there is a substitution available. Please see below for remaining past medical history and physical exam. PAST HISTORY Past Cardiac Illnesses: palpitations, atrial fibrillation Surgeries/Procedures - General: lasix on R eye LVEF not documented FAMILY HISTORY: Father - Age 65, ETOH abuse and [place]; Mother - Age 67, multiple sclerosis and pneumonia; Brother 1 - kidney transplant; CARDIAC RISK FACTORS Tobacco Abuse: used to smoke, but quit, 1995, smoked x 20 yrs, 1ppd; Family History of Heart Disease: positive; Hyperlipidemia: positive; Hypertension: positive; Diabetes Mellitus: negative; Obesity:negative; Sedentary Life Style:negative SOCIAL HISTORY Alcohol Use - drinks rarely; Smoking - used to smoke but quit, 1995, smoked x 20yrs and 1ppd; Diet - regular diet without modifications and caffeine use-rare; Lifestyle - active lifestyle, drives car, and 2 children; Exercise - exercises regularly; Seat Belt Use - always; 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 PHYSICAL EXAMINATION VITAL SIGNS: Blood Pressure: 110/70Sitting, Left arm, regular cuff Pulse- 64.00/min. Weight- 155.00 lbs. Height- 66 CONSTITUTIONAL cooperative, alert and oriented,well developed, well [...] and place. MEDICATIONS UPDATED/STARTED TODAY: Lipitor 10 mg Tablet, 1 p.o. daily, #30 (Thirty) metoprolol tartrate 100 mg Tablet, 1 p.o. twice daily, #60 (Sixty) MEDICATIONS REFILLED/STOPPED TODAY: Lipitor 10 mg Tablet 1 p.o. daily #30 (Thirty) Refill, Lipitor 20 mg Tablet Dose/instruction UNKNOWN #0 (Zero) Physician Order, Metoprolol Tartrate 100 Mg Tablet 1 p.o. twice daily #-1 Refill and Simvastatin 20 mg Tablet 1 p.o. qHS #90 (Ninety) Physician Order IMPRESSIONS/PLAN 1. History of paroxysmal atrial fibrillation although she has not had any symptomatic atrial fibrillations since 2002. She will continue on the metoprolol. 2. Dyslipidemia on Lipitor therapy. I provided her with samples of Lipitor 10 mg a day and we had a discussion regarding Lipitor, as it will become generic in the next couple of months so she has elected to stay on this medication. I will have her see Dr. Lynn in follow-up again in one year unless she has problems prior to that then I would ask that she contact me at our clinic. Thank you for allowing me to participate in the care of this delightful patient. Angela Green. N.P. documented in this encounter Plan of Treatment Upcoming Encounters Date Type Department Care Team (Late st Contact Info) Description 11/05/2023 7:30 AM CDT Office Visit [facility] [address] [facility] [address] [place] [phone] Lina Resendiz PA-C [address] [facility] [address] [place] [address] documented as of this encounter Visit Diagnoses Not on filedocumented in this encounter Care Teams Lead Housekeeper Relationship Specialty Start Date End Date Estrella Day MD PCP - General Family Practice 05/01/14 Austin Lynn MD [address] [facility] [address] [place] [address] Assigned Heart and Vascular Provider 01/30/20 08/20/21 Cee Guerra APRN SUPERVISOR INDUSTRIAL GARMENT [address] [place] [address] Assigned Heart and Vascular Provider 08/21/21 07/07/22 Austin Lynn MD [address] [place] [id number] MD Cardiovascular Disease 05/23/22 Austin Lynn MD [address] [place] [address] Assigned Heart and Vascular Provider 08/12/22 Lina Resendiz PA-C [address] [place] [address] Physician City Administrator Cardiovascular Disease 09/28/23 documented as of this encounter
--- OUTSIDE RECORDS SUMMARY | 2023-10-08 09:00 | XMS_ITS | Encounter Summary ---
Author Organization [facility] Address [address] [place] [address] Care Team Providers Care Clean In Places Operator Name Role Phone Estrella Day MD Primary Care Provider [phone] Austin Lynn MD Unavailable Austin Lynn MD Unavailable Encounter Details Date Type Department Care Team (Late Contact Info) Description 09/25/2023 7:20 AM CDT Lab [facility] [address] [facility] [place] [phone] Essential hypertension; Pure hypercholesterolemia Social History Tobacco Use Types Packs/Day Years [...] Description 11/05/2023 7:30 AM CDT Office Visit [facility] [place] [address] [facility] [address] [place] [phone] Lina Resendiz PA-C [address] [place] [address] documented as of this encounter Procedures Procedure Name Priority Date/Time Associated Diagnosis Comments LIPID PROFILE Routine 09/25/2023 7:31 AM CDT Pure hypercholesterolemia ALT Routine 09/25/2023 7:31 AM CDT Pure hypercholesterolemia BASIC METABOLIC PANEL Routine 09/25/2023 7:31 AM CDT Essential hypertension documented in this encounter Results * ALT (09/25/2023 7:31 AM CDT) ALT 17 0 - 50 U/L 09/25/2023 7:5 4 AM CDT LABORATORY Blood STRUCTURE OF LEFT UPPER LIMB / Unknown Venipuncture / Unknown 09/25/2023 7:31 AM CDT 09/25/2023 7:31 AM CDT Austin Lynn MD LAB - BLOOD ORDERABL ES LABORATORY [facility] [address] floor, [address] [place] [address], [facility] [phone] * Lipid Profile (09/25/2023 7:31 AM CDT) [...] MD LAB - BLOOD ORDERABL ES LABORATORY [facility] Lab [address] [facility], [address] [place] [address], [facility] LABORATORY [facility] [address] floor, Room [address] [place] [address], [facility] [phone] * (ABNORMAL) Basic metabolic panel (09/25/2023 7:31 AM CDT) [facility] [address] Sodium 135 135 - 145 mmol/L 09/25/2023 7:54 AM T LABORATORY Comment:Reference intervals for this test were updated on 01/02/2023 to more accurately reflect our healthy population. There may be differences in the flagging of prior results with similar values performed with this method. Interpretation of those prior results can be made in the context of the updated reference intervals. Potassium 5.2 3.4 - 5.3 mmol/L 09/25/2023 7:54 AM T LABORATORY Chloride 99 98 - 107 mmol/L 09/25/2023 7:54 AM T LABORATORY Carbon Dioxide (CO2) 27 22 - 29 mmol/L 09/25/2023 7:54 AM T LABORATORY Anion Gap 9 7 - 15 mmol/L 09/25/2023 7:54 AM T LABORATORY Urea Nitrogen 9.7 8.0 - 23.0 mg/dL 09/25/2023 7:54 AM T LABORATORY Creatinine 0.79 0.51 - 0.95 mg/dL 09/25/2023 7:54 AM T LABORATORY GFR Estimate 80 >60 mL/min/1. 73m2 09/25/2023 7:54 AM [facility]OR[facility] Comment:eGFR calculated usin 2020 CKD-EPI equation. Calcium 9.8 8.8 - 10.2 mg/dL 09/25/2023 7:54 AM [facility]ORATORY Glucose 102(H) 70 - 99 mg/dL 09/25/2023 7:54 AM [facility] Blood STRUCTURE OF LEFT UPPER LIMB / Unknown Venipuncture / Unknown 09/25/2023 7:31 AM CDT 09/25/2023 7:31 AM CDT Austin Lynn MD LAB - BLOOD ORDERABL ES LABORATORY [facility] [address] 1[address] floor, [address] [place] [address], [facility] [phone] documented in this encounter Visit Diagnoses Diagnosis Essential hypertension Unspecified essential hypertension Pure hypercholesterolemia documented in this encounter Care Teams Clean In Places Operator Relationship Specialty Start Date End Date Estrella Day MD PCP - General Family Practice 05/01/14 Austin Lynn MD [address] [place] [address] Cardiovascular Disease 2/14/23 Austin Lynn MD [address] [place] [address] Assigned Heart and Vascular Provider 08/12/22 documented as of this encounter
--- OUTSIDE RECORDS SUMMARY | 2023-10-08 09:00 | XMS_ITS | Encounter Summary ---
Author Organization [facility] Address [address] [place] [address] Care Team Providers Care Microfiche Camera Operator Name Role Phone Estrella Day MD Primary Care Provider [phone] Austin Lynn MD Unavailable [phone] Cee Guerra APRN CHIPPING MACHINE OPERATOR Unavailable [phone] Austin Lynn MD Unavailable Austin Lynn MD Unavailable Lina ResendizC Unavailable Encounter Details Date Type Department Care Team (Late st Contact Info) Description 03/16/2004 Office Visit-[facility] [address] [place] [address] Unknown, MD Reece Social History Tobacco Use Types Packs/Day Years Used Date Smoking Tobacco: Never Assessed Sex and Gender Information Value Date Recorded Sex Assigned at Female 08/08/2022 4:45 PM CDT Gender Identity Female 08/08/2022 4:45 PM CDT Sexual Orientation Not on file documented as of this encounter Progress Notes * Unknown, MD Reece - 03/22/2004 10:19 AM CST Progress Note Created by: Diana Little DATE: 03/16/2004 JENNYFER ELLIOTT DATE OF : 1950 AGE: [age] years old Referring Physician: SANTHOSH CEBALLOS Referring Clinic: [facility] CURRENT DIAGNOSES 1. - Atrial Fibrillation, 427.31 2. - Hypertension, benign, 401.1 ALLERGIES NKA MEDICATIONS (including any changes made today) 1. Lo/Ovral 30 mcg-0.3 mg, Take as Directed 2. Maribel-Dec Multiple Vitamins with Minerals, 1 p.o. q.d. 3. Metoprolol Tartrate 100 Mg, 1 p.o. b.i.d. CHIEF COMPLAINTS Annual HISTORY OF PRESENT ILLNESS: Jennyfer is a very delightful 53-year-old female who presents today forfollow-up regarding hypertension and atrial fibrillation. As you may recall, she has had a few episodes of atrial fibrillation which have been very short-lived and have spontaneously converted. Her primary care physician had sent her to our clinic for management of her blood pressure. Her metoprolol has been maintained at 100 mg b.i.d. and she has been very well controlled. Over the past year shehas checked her blood pressure quite often, and notes that it has always been at goal in the 120's and 130's systolic/70's diastolic. She has had no breakthrough episodes of atrial fibrillation. She d enies any chest pains or pressure, no neck, jaw, or arm pain, no syncope, presyncope, PND, orthopnea, or pedal edema. 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 PHYSICAL EXAMINATION VITAL SIGNS: Blood Pressure: 134/74 Sitting, Left arm, regular cuff 128/74 Retaken by PA Pulse- 60.00/min. Weight- 139.00 lbs. Height- 66.00 Temperature- .00 CONSTITUTIONAL cooperative, [...] time, person and place. MEDICATIONS UPDATED TODAY: Maribel-Dec Multiple Vitamins with Minerals, 1 p.o. q.d., DIRECTED Metoprolol Tartrate 100 Mg, 1 p.o. b.i.d., #60 IMPRESSIONS/PLAN </B><FONT FACE=Residential Insurance Inspector New>1. Atrial fibrillation. Very well controlled, and she is currently on metoprolol. She will let us know should she have any further episodes. 2. Hypertension. This is adequately controlled today with a blood pressure of 128/74. I have refilled her medication.She will follow-up with her primary care physician in the future, and certainly let us know should she have any problems or concerns. Willard Little. documented in this encounter Plan of Treatment Upcoming Encounters Date Type Department Care Team (Late st Contact Info) Description 11/05/2023 7:30 AM CDT Office Visit [facility] [place] [address] [place] [phone] Lina Resendiz PA-C [address] [place], [place] [phone] documented as of this encounter Visit Diagnoses Not on filedocumented in this encounter Care Teams Microfiche Camera Operator Relationship Specialty Start Date End Date Estrella Day MD PCP - General Family Practice 05/01/14 Austin Lynn MD [address] [place], [place] [address] Assigned Heart and Vascular Provider 01/30/20 08/20/21 Cee Guerra APRN CNP [address] [place], [place] [address] Assigned Heart and Vascular Provider 08/21/21 07/07/22 Austin Lynn MD [address] [place], [place] [address] Cardiovascular Disease 05/23/22 Austin Lynn MD [address] [place], [place] [address] Assigned Heart and Vascular Provider 08/12/22 Lina Resendiz PA-C [address] [place], [place] [phone] Physician Building Materials Sales Attendant Cardiovascular Disease 09/28/23 documented as of this encounter
--- OUTSIDE RECORDS SUMMARY | 2023-10-08 09:00 | XMS_ITS | Encounter Summary ---
Author Organization [facility] Address [address] [place] [address] Care Team Providers Care Bin Tripper Operator Name Role Phone Estrella Day MD Primary Care Provider [phone] Austin Lynn MD Unavailable Cee Guerra APRN EMERGENCY PLANNING AND RESPONSE MANAGER Unavailable [phone] Austin Lynn MD Unavailable Austin Lynn MD Unavailable Lina Resendiz PA-C Unavailable Encounter Details Date Type Department Care Team (Late st Contact Info) Description 02/16/2009 Office Visit-[facility] [address] [place] [phone] Shandra Chavez PA-C Social History Tobacco Use Types Packs/Day Years Used Date Smoking Tobacco: Never Assessed Sex and Gender Information Value Date Recorded Sex Assigned at Female 08/08/2022 4:45 PM CDT Gender Identity Female 08/08/2022 4:45 PM CDT Sexual Orientation Not on file documented as of this encounter Progress Notes * Shandra Chavez PA-C - 02/17/2009 10:56 AM CST Progress Note Created by: Diana Little DATE: 02/16/2009 JENNYFER ELLIOTT DATE OF : 1950 AGE: [age] years old Referring Physician: SANTHOSH CEBALLOS Referring Clinic: [facility] CURRENT DIAGNOSES 1. - Atrial Fibrillation, 427.31 2. - Hypertension, benign, 401.1 ALLERGIES NKA MEDICATIONS (prior to changes made today) 1. Maribel-Dec Multiple Vitamins with Minerals, 1 p.o. q.d. 2. Lipitor 10 mg, 1 p.o. q.d. 3. Metoprolol Tartrate 100 Mg, 1 p.o. b.i.d. 4. Prempro .3 mg-1.5 mg, 1 p.o. q.d. 5. Flaxseed oil 1000 mg, 1 p.o. q.d. CHIEF COMPLAINTS 1 year f/u HISTORY OF PRESENT ILLNESS Jennyfer Elliott is a very delightful 58-year-old who presents today for a follow-up regarding hypertension and atrial fibrillation. You may recall that back in 2002 she had some atrial fibrillation and was noted to be hypertensive. She has been completely free of these symptoms since starting on metoprolol and she has done very well. She continues to exercise 5-7 days a week without any problems.She never experiences chest pain, dyspnea or fatigue. She is on metoprolol at 100mg b.i.d. She has never been interested in lowering the dosage since she has continued to feel good without signs of A-fib. We have not repeated an echocardiogram since this initially occurred given that everything appeared quite normal. 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 PHYSICAL EXAMINATION VITAL SIGNS: Blood Pressure: 120/72 Sitting, Left arm, regular cuff Pulse- 62.00/min. Weight- 147.40 lbs. Height- 66.00 Temperature- .00 CONSTITUTIONAL cooperative, [...] time, person and place. MEDICATIONS UPDATED/STARTED TODAY: Metoprolol Tartrate 100 Mg, 1 p.o. b.i.d., #180 MEDICATIONS REFILLED/STOPPED TODAY: Metoprolol Tartrate 100 Mg 1 p.o. b.i.d. #180 Refill IMPRESSIONS/PLAN Jennyfer Elliott is a 58-year-old with a history of hypertension and atrial fibrillation. Since undergoing treatment with medical therapy she has not had any problems with ongoing atrial fibrillation.Her hypertension has also been well controlled. At this point I will leave her on her current medical therapy and have her follow-up with us again in one year. I would be happy to see her sooner for any problems or concerns. TODAYS ORDERS 1. F/U with Austin Lynn MD 1 year Diana Little documented in this encounter Plan of Treatment Upcoming Encounters Date Type Department Care Team (Late st Contact Info) Description 11/05/2023 7:30 AM CDT Office Visit [facility] [place] [address] [place] [phone] Lina Resendiz PA-C [address] [place] [address] documented as of this encounter Visit Diagnoses Not on filedocumented in this encounter Care Teams Bin Tripper Operator Relationship Specialty Start Date End Date Estrella Day MD PCP - General Family Practice 05/01/14 Austin Lynn MD [address] [place] [phone] Assigned Heart and Vascular Provider 01/30/20 08/20/21 Cee Guerra APRN CNP [address] [place] [address] Assigned Heart and Vascular Provider 08/21/21 07/07/22 Austin Lynn MD [address] [place] [address] Cardiovascular Disease 05/23/22 Austin Lynn MD [address] [place] [address] Assigned Heart and Vascular Provider 08/12/22 Lina Resendiz PA-C [address] [place] [address]156[address] Physician Pattern Filer Cardiovascular Disease 09/28/23 documented as of this encounter
--- OUTSIDE RECORDS SUMMARY | 2023-10-08 09:00 | XMS_ITS | Encounter Summary ---
Author Organization [facility] Address [address] [place] [address] Care Team Providers Care Out Patient Therapist Name Role Phone Estrella Day MD Primary Care Provider [phone] Austin Lynn MD Unavailable [phone] Cee Guerra APRN TUCK POINTER HELPER Unavailable [phone] Austin Lynn MD Unavailable Austin Lynn MD Unavailable Lina Resendiz PA-C Unavailable Encounter Details Date Type Department Care Team (Late st Contact Info) Description 02/17/2008 Office Visit-[facility] [address] [place] [phone] Shandra Chavez PA-C Social History Tobacco Use Types Packs/Day Years Used Date Smoking Tobacco: Never Assessed Sex and Gender Information Value Date Recorded Sex Assigned at Female 08/08/2022 4:45 PM CDT Gender Identity Female 08/08/2022 4:45 PM CDT Sexual Orientation Not on file documented as of this encounter Progress Notes * Shandra Chavez PA-C - 02/20/2008 5:07 PM CST Progress Note Created by: Diana Little DATE: 02/17/2008 JENNYFER ELLIOTT DATE OF : 1950 AGE: [age] years old Referring Physician: SANTHOSH CEBALLOS Referring Clinic: [facility] CURRENT DIAGNOSES 1. - Atrial Fibrillation, 427.31 2. - Hypertension, benign, 401.1 ALLERGIES NKA MEDICATIONS (prior to changes made today) 1. Maribel-Dec Multiple Vitamins with Minerals, 1 p.o. q.d. 2. Lipitor 10 mg, 1 p.o. q.d. 3. Prempro .3 mg-1.5 mg, 1 p.o. q.d. 4. Flaxseed oil 1000 mg, 1 p.o. q.d. 5. Metoprolol Tartrate 100 Mg, 1 p.o. b.i.d. CHIEF COMPLAINTS Annual ck HISTORY OF PRESENT ILLNESS Jennyfer Elliott is a very delightful 57-year-old woman who presents today for an annual followup regarding hypertension and atrial fibrillation. Since the metoprolol was started in 2002, she has beencompletely free of any atrial fibrillation signs or symptoms. She has no interest in lowering the dosage. She would like to remain on everything as is since she feels so good. Her blood pressure has been well controlled on this medication, as well. She is exercising 5 to 7 days a week without any problems. She never experiences chest pain, dyspnea, or fatigue. 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 PHYSICAL EXAMINATION VITAL SIGNS: Blood Pressure: 130/62 Sitting, Right arm, large cuff Pulse- 70.00/min. Weight- 149.80 lbs. Height- 66.00 Temperature- .00 CONSTITUTIONAL cooperative, [...] time, person and place. MEDICATIONS UPDATED/STARTED TODAY: Prempro .3 mg-1.5 mg, 1 p.o. q.d., 0 Flaxseed oil 1000 mg, 1 p.o. q.d., 0 Metoprolol Tartrate 100 Mg, 1 p.o. b.i.d., #180 MEDICATIONS REFILLED/STOPPED TODAY: Lo/Ovral 30 mcg-0.3 mg Take as Directed 0 Medication Change and Metoprolol Tartrate 100 Mg 1 p.o. b.i.d. #60 Refill IMPRESSION/PLAN: Jennyfer Elliott is a 57-year-old woman with atrial fibrillation and hypertension. She is currently doing very well on metoprolol 100 mg b.i.d. Her lipids are managed by her primary care physician and we will get those for our review. She will return in [address] Lynn. She was formally a patient of Dr. Cohen. TODAYS ORDERS 1. F/U with Austin Lynn MD 1 year Diana Little documented in this encounter Plan of Treatment Upcoming Encounters Date Type Department Care Team (Late st Contact Info) Description 11/05/2023 7:30 AM CDT Office Visit [facility] [place] [address] [facility] [address] [place] [phone] Lina Resendiz PA-C [address] [place] [address] documented as of this encounter Visit Diagnoses Not on filedocumented in this encounter Care Teams Out Patient Therapist Relationship Specialty Start Date End Date Estrella Day MD PCP - General Family Practice 05/01/14 Austin Lynn MD [address] [place] [address] Assigned Heart and Vascular Provider 01/30/20 08/20/21 Cee Guerra APRN TUCK POINTER HELPER [address] [place] [address] Assigned Heart and Vascular Provider 08/21/21 07/07/22 Austin Lynn MD [address] [place] [address] Cardiovascular Disease 05/23/22 Austin Lynn MD [address] [place] [id number] Assigned Heart and Vascular Provider 08/12/22 Lina Resendiz PA-C [address] [place] [address]878[address] Physician Bag Patcher Cardiovascular Disease 09/28/23 documented as of this encounter
--- OUTSIDE RECORDS SUMMARY | 2023-10-08 09:00 | XMS_ITS | Encounter Summary ---
Author Organization [facility] Address [address] [place] [address] Care Team Providers Care Manager Supply Chain Name Role Phone Estrella Day MD Primary Care Provider [phone] Austin Lynn MD Unavailable Cee Guerra APRN CAUSTIC ROOM OPERATOR Unavailable [phone] Austin Lynn MD Unavailable Austin Lynn MD Unavailable Lina ResendizC Unavailable Encounter Details Date Type Department Care Team (Late st Contact Info) Description 07/23/2002 Office Visit-[facility] [address] [place] [phone] Unknown, MD Reece Social History Tobacco Use Types Packs/Day Years Used Date Smoking Tobacco: Never Assessed Sex and Gender Information Value Date Recorded Sex Assigned at Female 08/08/2022 4:45 PM CDT Gender Identity Female 08/08/2022 4:45 PM CDT Sexual Orientation Not on file documented as of this encounter Progress Notes * Unknown, MD Reece - 02/16/2004 3:19 PM CST DATE: 07/23/2002 JENNYFER ELLIOTT DATE OF : 1950 AGE: [age] years old Referring Physician: LUDMILA IBRAHIM CURRENT DIAGNOSES 1. - Atrial Fibrillation, 427.31 ALLERGIES NKA MEDICATIONS 1. Metoprolol Tartrate 50 Mg, PRN 2. Lo/Ovral 30 mcg-0.3 mg, Take as Directed CHIEF COMPLAINTS HISTORY OF PRESENT ILLNESS Jennyfer went to [facility] and on the way down developed atrial fibrillation. She nursing note from 07/14/02. She has been taking Lanoxin ever since then with no recurrence. She recognizes that anxiety will trigger atrial fibrillation. She remembers that her echocardiogram was normal and otherwise she feels fine. She just needs to be calmed down. I told her that Lanoxin actually tends not to work very quickly and that a beta- delfin might work more quickly if she should develop atrial fibrillation. She does not like the idea of taking Lanoxinevery day. She is refraining from alcohol but she is a little concerned about renewing her exerciseprogram. She has not had any activity trigger fibrillation in the past. PAST HISTORY Past Cardiac Illnesses: palpitations FAMILY HISTORY: Father - Age 65, ETOH [...] children in own home; Place of - [place]; Hours Worked - 40 hours per week; Spouse's Occupation - contractor; REVIEW OF SYSTEMS GENERAL denies recent weight loss, weight gain, fever or chills or change in exercise tolerance. INTEGUMENTARY denies any change in hair or nails, rashes, or skin lesions. EYES wears eye glasses/contact lenses EARS, NOSE, THROAT, MOUTH denies any hearing loss, epistaxis, hoarseness or difficulty speaking. RESPIRATORY denies dyspnea, cough, wheezing or hemoptysis. CARDIOVASCULAR palpitations, chest discomfort ABDOMINAL denies ulcer disease, hematochezia or melena. [...] disorders. PHYSICAL EXAMINATION VITAL SIGNS: Blood Pressure: 154/84 Sitting, Left arm, regular cuff Pulse- 80.00/min. Weight- 134.20 lbs. Height- 66.00 Temperature- .00 CONSTITUTIONAL cooperative, [...] time, person and place. MEDICATIONS UPDATED TODAY: Lanoxin 0.25 mg, 1 p.o. q.d., DIRECTED Metoprolol Tartrate 50 Mg, PRN, #21 MEDICATION STOPPED TODAY: Lanoxin 0.25 mg IMPRESSIONS/PLAN Paroxysmal atrial fibrillation, probably brought on by stress of travel. RECOMMENDATION: 1. She was reassured that this is not a life threatening problem and this is all she needed to hear. 2. I gave her a prescription for metoprolol 50 mg to be taken on a p.r.n. basis. If 50 mg causes too much trouble, she can certainly try 25 mg. I also asked her to try to anticipate when she might be under more stress such as upcoming 52th birthday or the of her nephew. She can certainly take that in advance of these events. I will not plan on seeing her unless she should have any further questions. TODAYS ORDERS 1. Return prn Taj Fortune M.D. Document electronically signed by : Taj Fortune M.D. Date : 02/16/2004 Time : 3:19:53 PM documented in this encounter Plan of Treatment Upcoming Encounters Date Type Department Care Team (Late st Contact Info) Description 11/05/2023 7:30 AM CDT Office Visit [facility] [address] [facility] [address] [place] [phone] Lina Resendiz PA-C [address] [facility] [address] [place] [address] documented as of this encounter Visit Diagnoses Not on filedocumented in this encounter Care Teams Manager Supply Chain Relationship Specialty Start Date End Date Estrella Day MD PCP - General Family Practice 05/01/14 Austin Lynn MD [address] [place] [address] Assigned Heart and Vascular Provider 01/30/20 08/20/21 Cee Guerra APRN CAUSTIC ROOM OPERATOR [address] [place], [place] [address] Assigned Heart and Vascular Provider 08/21/21 07/07/22 Austin Lynn MD [address] [place] [address] Cardiovascular Disease 05/23/22 Austin Lynn MD [address] [place], [place] [address] Assigned Heart and Vascular Provider 08/12/22 Lina Resendiz PA-C [address] [place], [place] [address] Physician Data Warehousing Engineer Cardiovascular Disease 09/28/23 documented as of this encounter
--- OUTSIDE RECORDS SUMMARY | 2023-10-08 09:00 | XMS_ITS | Encounter Summary ---
Author Organization [facility] Address [address] [place] [address] Care Team Providers Care Document Management Analyst Name Role Phone Estrella Day MD Primary Care Provider [phone] Austin Lynn MD Unavailable [phone] Cee Guerra APRN WOOD DRILL OPERATOR Unavailable [phone] Austin Lynn MD Unavailable Austin Lynn MD Unavailable Lina Resendiz PA-C Unavailable [phone] Encounter Details Date Type Department Care Team (Late st Contact Info) Description 02/09/2006 Office Visit-[facility] [address] [place] [phone] Shandra Chavez PA-C Social History Tobacco Use Types Packs/Day Years Used Date Smoking Tobacco: Never Assessed Sex and Gender Information Value Date Recorded Sex Assigned at Female 08/08/2022 4:45 PM CDT Gender Identity Female 08/08/2022 4:45 PM CDT Sexual Orientation Not on file documented as of this encounter Progress Notes * Shandra Chavez PA-C - 02/13/2006 2:36 PM CST Progress Note Created by: Diana Little DATE: 02/09/2006 JENNYFER ELLIOTT DATE OF : 1950 AGE: [age] years old Referring Physician: SANTHOSH CEBALLOS Referring Clinic: [facility] CURRENT DIAGNOSES 1. - Atrial Fibrillation, 427.31 2. - Hypertension, benign, 401.1 ALLERGIES NKA MEDICATIONS (including any changes made today) 1. Metoprolol Tartrate 100 Mg, 1 p.o. b.i.d. 2. Lo/Ovral 30 mcg-0.3 mg, Take as Directed 3. Maribel-Dec Multiple Vitamins with Minerals, 1 p.o. q.d. 4. Lipitor 10 mg, 1 p.o. q.d. CHIEF COMPLAINTS Followup of - Atrial Fibrillation HISTORY OF PRESENT ILLNESS Jennyfer is a delightful 55-year-old female who presents today for a follow-up regarding atrial fibrillation. She is here for her annual visit for medication refills. You may recall that she had several episodes of atrial fib and was in the emergency room for these. However, in the last couple of years she has not had any of her current episodes and has been well controlled with just the use of metoprolol. She wants to continue following with cardiology for this issue. She has had an uneventfulyear without any notable atrial fib or palpitations. She also denies chest discomfort, neck, jaw orarm pain. No syncope, presyncope, PND, orthopnea, or pedal edema. She is on Lipitor for hyperlipidemia which is managed by her primary care physician. She does walk as often as she can which amounts to several days per week. She always tolerates her exercise without difficulty. 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 INTEGUMENTARY denies any [...] disorders. PHYSICAL EXAMINATION VITAL SIGNS: Blood Pressure: 140/78 Sitting, Left arm, regular cuff 140/74 Retaken by OPERATIONS SUPPORT ANALYST/PA Pulse- 60.00/min. Weight- 146.00 lbs. Height- 66.00 Temperature- .00 CONSTITUTIONAL cooperative, [...] Tartrate 100 Mg, 1 p.o. b.i.d., #60 MEDICATION STOPPED TODAY: Metoprolol Tartrate 100 Mg IMPRESSIONS/PLAN 1. Atrial fibrillation which again has been quiescent over the past year. She is currently adequately controlled with the use of metoprolol 100 b.i.d. I refilled that medication for her today. She will return in one year to see Dr. Fortune for an annual visit. I would be happy to see her sooner should any problems or concerns arise. Her Blood pressure was mildly elevated, but she had not taken her medications this morning. She didbring in several readings for my review and they were all in the 120's and 130's systolic. She willcontinue to monitor this issue. TODAYS ORDERS 1. F/U with MD Shandra Zamorano, P.A. documented in this encounter Plan of Treatment Upcoming Encounters Date Type Department Care Team (Late st Contact Info) Description 11/05/2023 7:30 AM CDT Office Visit [facility] [place] [address] [place] [phone] Lina Resendiz PA-C [address] [place] [address] documented as of this encounter Visit Diagnoses Not on filedocumented in this encounter Care Teams Document Management Analyst Relationship Specialty Start Date End Date Estrella Day MD PCP - General Family Practice 05/01/14 Austin Lynn MD [address] [place] [address] Assigned Heart and Vascular Provider 01/30/20 08/20/21 Cee Guerra APRN WOOD DRILL OPERATOR [address] [place] [address] Assigned Heart and Vascular Provider 08/21/21 07/07/22 Austin Lynn MD [address] [place] [address] Cardiovascular Disease 05/23/22 Austin Lynn MD [address] [place] [address] Assigned Heart and Vascular Provider 08/12/22 Lina Resendiz PA-C [address] [place] [address] Physician Associate Financial Representative Cardiovascular Disease 09/28/23 documented as of this encounter
--- OUTSIDE RECORDS SUMMARY | 2023-10-08 09:00 | XMS_ITS | Encounter Summary ---
Author Organization [place] Address [address] [place] [address]. [place] [address] Care Team Providers Care Radio Electronics Technician Name Role Phone Estrella Day MD Primary Care Provider [phone] Austin Lynn MD Unavailable [phone] Austin Lynn MD Unavailable [phone] Encounter Details Date Type Department Care Team (Latest Contact Info) Description 09/20/2023 Travel Social History Tobacco Use Types Packs/Day [...] Description 11/05/2023 7:30 AM CDT Office Visit [facility] [address] [facility] [address] [place] [phone] Lina Resendiz, MACYC [address] [facility] [address] [place] [address] documented as of this encounter Visit Diagnoses Not on filedocumented in this encounter Care Teams Radio Electronics Technician Relationship Specialty Start Date End Date Estrella Day MD PCP - General Family Practice 05/01/14 Austin Lynn MD [address] [place] [address] Cardiovascular Disease 05/23/22 Austin Lynn MD [address] [place] [id number] Assigned Heart and Vascular Provider 08/12/22 documented as of this encounter
--- OUTSIDE RECORDS SUMMARY | 2023-10-08 09:00 | XMS_ITS | Encounter Summary ---
Author Organization [facility] Address [address] [place] [address] Care Team Providers Care Customer Operations Representative Name Role Phone Estrella Day MD Primary Care Provider [phone] Austin Lynn MD Unavailable Cee Guerra APRN PRODUCT TRANSFER PUMPER Unavailable [phone] Austin Lynn MD Unavailable Austin Lynn MD Unavailable Lina Resendiz PA-C Unavailable [phone] Encounter Details Date Type Department Care Team (Late st Contact Info) Description 02/16/2009 Office Visit-[facility] [address] [place] [phone] Shandra Chavez PA-C Social History Tobacco Use Types Packs/Day Years Used Date Smoking Tobacco: Never Assessed Sex and Gender Information Value Date Recorded Sex Assigned at Female 08/08/2022 4:45 PM CDT Gender Identity Female 08/08/2022 4:45 PM CDT Sexual Orientation Not on file documented as of this encounter Progress Notes * Shandra Chavez PA-C - 02/16/2009 1:16 PM CST Progress Note Created by: Diana Little DATE: 02/16/2009 ZAKI ELLIOTT DATE OF : 1950 AGE: [age] years old Referring Physician: SANTHOSH CEBALLOS Referring Clinic: [facility] CURRENT DIAGNOSES 1. 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 b.i.d. #180 Refill IMPRESSIONS/PLAN (Enter Doctor Dictated Impressions Here) Diana Little documented in this encounter Plan of Treatment Upcoming Encounters Date Type Department Care Team (Late st Contact Info) Description 11/05/2023 7:30 AM CDT Office Visit [facility] [place] [address] [facility] [address] [place] [address] Lina Resendiz PA-C [address] [facility] [address] [place] [address] documented as of this encounter Visit Diagnoses Not on filedocumented in this encounter Care Teams Customer Operations Representative Relationship Specialty Start Date End Date Estrella Day MD PCP - General Family Practice 05/01/14 Austin Lynn MD [address] [place], [place] [address] Assigned Heart and Vascular Provider 01/30/20 08/20/21 Cee Guerra APRN PRODUCT TRANSFER PUMPER [address] [place], [place] [address] Assigned Heart and Vascular Provider 08/21/21 07/07/22 Austin Lynn MD [address] [place], [place] [address] Cardiovascular Disease 05/23/22 Austin Lynn MD [address] [place], [place] [address] Assigned Heart and Vascular Provider 08/12/22 Lina Resendiz PA-C [address] [place], [place] [address] Physician Sales Operations Director Cardiovascular Disease 09/28/23 documented as of this encounter
--- OUTSIDE RECORDS SUMMARY | 2023-10-08 09:00 | XMS_ITS | Encounter Summary ---
Author Organization [facility] Address [address] [place] [address]. [place] [address] Care Team Providers Care Transplant Surgeon Name Role Phone Estrella Day MD Primary Care Provider [phone] Austin Lynn MD Unavailable Reinier Guerra APRN DEVELOPMENT COORDINATOR Unavailable [phone] Austin Lynn MD Unavailable Austin Lynn MD Unavailable [phone] Lina ResendizC Unavailable [phone] Encounter Details Date Type Department Care Team (Late st Contact Info) Description 03/04/2012 Office Visit-[facility] [place] [address] [facility] [address] [place] [address] Austin Lynn MD [address] [facility] [address] [place], [place] [id number] Social History Tobacco Use Types Packs/Day Years Used Date Smoking Tobacco: Never Assessed Sex and Gender Information Value Date Recorded Sex Assigned at Female 08/08/2022 4:45 PM CDT Gender Identity Female 08/08/2022 4:45 PM CDT Sexual Orientation Not on file documented as of this encounter Progress Notes * Austin Lynn MD - 03/05/2012 3:43 PM CST Progress Note Created by: Austin Lynn M.D. DATE: 03/04/2012 JENNYFER ELLIOTT DATE OF : 1950 AGE: [age] years old Referring Physician: REINIER HILARIO Referring Clinic: [facility] CURRENT DIAGNOSES 1. - Atrial Fibrillation, 427.31 2. - Hypertension, benign, 401.1 3. Bruit, 785.9 ALLERGIES NKA MEDICATIONS (prior to changes made today) 1. Aspirin Childrens 81 mg tablet, chewable, 1 p.o. daily 2. Daily Multivitamin Tablet, 1 p.o. daily 3. Flaxseed Oil 1,000 Mg Capsule, 1 p.o. daily 4. metoprolol tartrate 100 mg tablet, 1 p.o. twice daily 5. simvastatin 40 mg tablet, 1 p.o. qHS CHIEF COMPLAINTS Cardiac Assessment HISTORY OF PRESENT ILLNESS I had the opportunity to see Ms. Jennyfer Elliott in cardiology clinic today for reevaluation of paroxysmal atrial fibrillation. Ms. Elliott is a 61-year-old woman who had episodes of atrial fibrillation back in 2001 and 2002. Since that time, she has not noticed any recurrent atrial fibrillation. She has been maintained on metoprolol and has tried to avoid caffeine and moderate her stress. She hasnot noticed any palpitations, chest discomfort, light-headedness or shortness of breath issues. She continues on treatment for dyslipidemia as well. She switched from Lipitor 10 mg a day to simvastatin 40 mg a day for cost reasons last year. On examination today, her blood pressure is 120/70mmHg, heart rate 66 and weight 155 pounds. Her lungs are clear. Her heart rhythm is regular. She has no cardiac murmurs. She does have a rather prominent high-pitched left-sided carotid bruit loudest up at the angle of the jaw. 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 [...] disorders. PHYSICAL EXAMINATION VITAL SIGNS: Blood Pressure: 120/70Sitting, Left arm, large cuff Pulse- .00/min. Weight- 155.00 lbs. Height- 66.00 BMI Measurement: 25 CONSTITUTIONAL cooperative, alert and oriented,well developed, well [...] time, person and place. MEDICATIONS UPDATED/STARTED TODAY: Aspirin Childrens 81 mg tablet, chewable, 1 p.o. daily, #30 (Thirty) metoprolol tartrate 100 mg tablet, 1 p.o. twice daily, #180 (One [place] Eighty) simvastatin 40 mg tablet, 1 p.o. qHS, #0 (Zero) MEDICATIONS REFILLED/STOPPED TODAY: Lipitor 10 mg Tablet 1 p.o. daily #30 (Thirty) Substitution, metoprolol tartrate 100 mg Tablet 1 p.o. twice daily #60 (Sixty) Refill and Prempro 0.3-1.5 Mg Tablet 1 p.o. daily #-1 Physician Order IMPRESSIONS/PLAN Ms. Jennyfer Elliott is a 61-year-old woman with paroxysmal atrial fibrillation. She has been asymptomatic for the last 9 years. She continues on metoprolol tartrate at a dose of 100 mg twice daily. Iwarned her that she may not have the same symptoms of rapid heartbeating or palpitations that she had when she was not on metoprolol and suggested that she take her pulse on a regular basis to determine whether she has recurrent episodes of atrial fibrillation. Fortunately, her risk of stroke is quite low with a CHADS2 score of 1. For this reason I will continue her on aspirin daily. I do not think she requires any anticoagulation at this point. Her blood pressure is under excellent control and I did suggest that she consider the possibility of obstructive sleep apnea and address this at homewith other family members. I noticed that she has a left-sided carotid bruit. She does certainly have vascular risk factors including a history of smoking, which she quit in 1995, as well as hypertension and dyslipidemia, which I noted above. Fortunately those are well controlled. I will go ahead and order an ultrasound of her neck arteries and follow-up as appropriate. If everything looks okay we will plan to notify her by phone and see her again in one year. She will follow-up with you for management of her dyslipidemia in April. TODAYS ORDERS 1. Carotid Duplex Within 2 Weeks 2. F/U with Austin Lynn MD 1 year Austin Lynn M.D. documented in this encounter Plan of Treatment Upcoming Encounters Date Type Department Care Team (Late st Contact Info) Description 11/05/2023 7:30 AM CDT Office Visit [facility] [address] [facility] [address] [place] [phone] Lina Resendiz PA-C [address] [facility] [address] [place] [address] documented as of this encounter Visit Diagnoses Not on filedocumented in this encounter Care Teams Transplant Surgeon Relationship Specialty Start Date End Date Estrella Day MD PCP - General Family Practice 05/01/14 Austin Lynn MD [address] [place] [address] Assigned Heart and Vascular Provider 01/30/20 08/20/21 Reinier Guerra APRN DEVELOPMENT COORDINATOR [address] [place] [address] Assigned Heart and Vascular Provider 08/21/21 07/07/22 Austin Lynn MD [address] [place] [address] Cardiovascular Disease 05/23/22 Austin Lynn MD [address] [place] [address] Assigned Heart and Vascular Provider 08/12/22 Lina Resendiz PA-C [address] [place] [address] Physician Health Services Director Cardiovascular Disease 09/28/23 documented as of this encounter
--- OUTSIDE RECORDS SUMMARY | 2023-10-08 09:00 | XMS_ITS | Encounter Summary ---
Author Organization [facility] Address [address] [place] [address] Care Team Providers Care Medical Technicians Name Role Phone Estrella Day MD Primary Care Provider [phone] Austin Lynn MD Unavailable Cee Guerra APRN ASSEMBLER ADJUSTER Unavailable [phone] Austin Lynn MD Unavailable Austin Lynn MD Unavailable Lina ResendizC Unavailable [phone] Encounter Details Date Type Department Care Team (Late st Contact Info) Description 03/04/2003 Office Visit-[facility] [address] [place] [address] Unknown, MD Reece Social History Tobacco Use Types Packs/Day Years Used Date Smoking Tobacco: Never Assessed Sex and Gender Information Value Date Recorded Sex Assigned at Female 08/08/2022 4:45 PM CDT Gender Identity Female 08/08/2022 4:45 PM CDT Sexual Orientation Not on file documented as of this encounter Progress Notes * Unknown, MD Reece - 03/10/2003 11:17 AM CST Progress Note Created by: Diana Little DATE: 03/04/2003 ZAKI ELLIOTT DATE OF : 1950 AGE: [age] years old Referring Physician: SANTHOSH CEBALLOS CURRENT DIAGNOSES 1. - Atrial Fibrillation, 427.31 2. - Hypertension, benign, 401.1 ALLERGIES NKA MEDICATIONS 1. Lo/Ovral 30 mcg-0.3 mg, Take as Directed 2. Metoprolol Tartrate 50 Mg, 1 p.o. b.i.d. CHIEF COMPLAINTS F/u visit. HISTORY OF PRESENT ILLNESS Ms. Elliott is a delightful 52-year-old female who presents today for follow up regarding atrial fibrillation and hypertension. As you may recall, her cardiac history is significant for atrial fibrillation which first developed in July,, on a trip to [facility]. She has subsequently had two recurrences, both of which she can relate to stressful situations. Her last episode had occurred abouttwo weeks ago and she had been taking metoprolol p.r.n. per Dr. Fortune's recommendation. She did notnote any relief of her symptoms and presented to the Emergency Department and was found to have a ventricular rate of 180 beats per minute. She also had atrial fibrillation with rapid ventricular response. She was cardioverted with 100 joules and was brought back into normal sinus rhythm with a rate of 67 and was discharged and told to follow up accordingly. At our last visit I placed her on metoprolol 50 mg b.i.d. to be taken daily rather than p.r.n. At this time she reports that she has not had any recurrence of those episodes of atrial fibrillation. She did note some mild lightheadedness for the first few days after taking the medication but reportsthat has since gone away. She overall feels quite well and does not have any complaints today. She has not had any episodes of chest pain or pressure noted at rest or on exertion, no syncope, presyncope, PND, palpitations, orthopnea, or pedal edema. PAST HISTORY Past [...] loss, epistaxis, hoarseness or difficulty speaking. RESPIRATORY dyspnea, improving. CARDIOVASCULAR palpitations, chest discomfort, dizziness, improved ABDOMINAL denies ulcer disease, hematochezia or melena. [...] disorders. PHYSICAL EXAMINATION VITAL SIGNS: Blood Pressure: 140/70 Sitting, Right arm, regular cuff Pulse- 60.00/min. Weight- 131.00 lbs. Height- 65.00 Temperature- .00 CONSTITUTIONAL cooperative, alert and oriented,well [...] time, person and place. MEDICATIONS UPDATED TODAY: IMPRESSIONS/PLAN Atrial fibrillation which is currently under very good control. The patient is in normal sinus rhythm. Her heart rate is well controlled at 60 beats per minute. Metoprolol has been of good benefit for her as it has suppressed any recurrence of the atrial fib, as well as helped to bring her blood pressure down. By my recheck today her blood pressure was 128/64. She plans to follow up with her family doctor in about a month or two for continued monitoring of her blood pressure and will certainly call our office should she experience any problems or concerns. At this time she is to follow up with cardiology on a p.r.n. basis. Willard Little. documented in this encounter Plan of Treatment Upcoming Encounters Date Type Department Care Team (Late st Contact Info) Description 11/05/2023 7:30 AM CDT Office Visit [facility] [place] [address] [place] [phone] Lina Resendiz PA-C [address] [place], [place] [address] documented as of this encounter Visit Diagnoses Not on filedocumented in this encounter Care Teams Medical Technicians Relationship Specialty Start Date End Date Estrella Day MD PCP - General Family Practice 05/01/14 Austin Lynn MD [address] [place], [place] [address] Assigned Heart and Vascular Provider 01/30/20 08/20/21 Cee Guerra APRN CNP [address] [place], [place] [address] Assigned Heart and Vascular Provider 08/21/21 07/07/22 Austin Lynn MD [address] [place] [place], [place] [address] Cardiovascular Disease 05/23/22 Austin Lynn MD [address] [place] [place], [place] [address] Assigned Heart and Vascular Provider 08/12/22 Lina Resendiz PA-C [address] [place], [place] [address] Physician Phlebotomy Services Representative Cardiovascular Disease 09/28/23 documented as of this encounter
--- OUTSIDE RECORDS SUMMARY | 2023-10-08 09:00 | XMS_ITS | Encounter Summary ---
Author Organization [facility] Address [address] [place] [address]. [place] [address] Care Team Providers Care Rotating Field Assembler Name Role Phone Estrella Day MD Primary Care Provider [phone] Austin Lynn MD Unavailable Cee Guerra APRN METEOROLOGY FACULTY MEMBER Unavailable [phone] Austin Lynn MD Unavailable Austin Lynn MD Unavailable Lina ResendizC Unavailable Encounter Details Date Type Department Care Team (Late st Contact Info) Description 03/04/2007 Office Visit-[facility] [address] [place] [address] [address] [place] [address] Taj Fortune MD [facility] [address] [facility] [address] [place], [place] [address] Social History Tobacco Use Types Packs/Day Years Used Date Smoking Tobacco: Never Assessed Sex and Gender Information Value Date Recorded Sex Assigned at Female 08/08/2022 4:45 PM CDT Gender Identity Female 08/08/2022 4:45 PM CDT Sexual Orientation Not on file documented as of this encounter Progress Notes * Taj Fortune MD - 03/05/2007 3:48 PM CST Progress Note Created by: Taj Fortune M.D. DATE: 03/04/2007 ZAKI ELLIOTT DATE OF : 1950 AGE: [age] years old Referring Physician: SANTHOSH FRYE Referring Clinic: [facility] CURRENT DIAGNOSES 1. - Atrial Fibrillation, 427.31 2. - Hypertension, benign, 401.1 ALLERGIES NKA MEDICATIONS (prior to changes made today) 1. Lo/Ovral 30 mcg-0.3 mg, Take as Directed 2. Maribel-Dec Multiple Vitamins with Minerals, 1 p.o. q.d. 3. Metoprolol Tartrate 100 Mg, 1 p.o. b.i.d. 4. Lipitor 10 mg, 1 p.o. q.d. CHIEF COMPLAINTS Refill metop. HISTORY OF PRESENT ILLNESS Ms. Elliott is here for an annual visit. She is basically here to get her metoprolol renewed. She said that she has been absolutely free of any atrial fibrillation sensations since I put her on this dose of metoprolol several years ago. She has no interest in having us try to titrate her to a lower dose as she feels perfectly fine on this does of metoprolol as she walks very quickly on her treadmill and feels that she could even finish a marathon. There is no dizziness or lightheadedness. She denies any sensation of bradyarrhythmia. She absolutely dreads the thought of having to possibly endure another episode of atrial fibrillation, which was last cardioverted in February 2003. It was afterthis cardioversion that we increased her metoprolol dose from 50 mg twice a day to 100 mg twice a day. 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 Her work circumstances are still satisfactory for her. There have been no other medical issues at all. Her examination is remarkable for the fact that her resting heart rate is still 56 to 60 beats per minute and regular. As I had her just get up and down from the bench, her heart rate does go up. Otherwise, her examination is totally normal. There is no evidence for carotid sinus hypersensitivity. _ PAST HISTORY Past Cardiac Illnesses: palpitations, atrial fibrillation FAMILY HISTORY: Father - Age 65, ETOH abuse and [place]; Mother - Age 67, multiple sclerosis and [...] children in own home; Place of - [place]; Hours Worked - 40 hours per week; Spouse's Occupation - contractor; REVIEW OF SYSTEMS GENERAL weight gain, 1 lb INTEGUMENTARY denies any change in hair or [...] disorders. PHYSICAL EXAMINATION VITAL SIGNS: Blood Pressure: 132/78 Sitting, Left arm, regular cuff Pulse- 56.00/min. Weight- 147.60 lbs. Height- 66.00 Temperature- .00 CONSTITUTIONAL cooperative, [...] Tartrate 100 Mg, 1 p.o. b.i.d., #60 MEDICATIONS REFILLED/STOPPED TODAY: Metoprolol Tartrate 100 Mg 1 p.o. b.i.d. #60 Refill IMPRESSION/PLAN: 1. Episodic atrial fibrillation, which has not recurred for at least three years on her current dose of metoprolol. 2. Hyperlipidemia, which is being treated by Dr. Frye. 3. There is a vague reference to hypertension in the past, which is no longer an active issue. Again, metoprolol may be taking the edge off of hypertensive tendencies. 4. She has been on hormone therapy for the last 17 years, which was primarily initiated as a control pill that she is now continuing through perimenopause. I briefly reviewed the literature regarding the use of hormone replacement therapy in menopausal situation where we would not ordinarily stop the drug after having been on it for so long, but I would certainly not initiate it from a cardiovascular preventative standpoint. She is content with leaving everything alone for now. I have renewed her metoprolol for another year. TODAYS ORDERS 1. Return Visit 1 year Taj Fortune M.D. documented in this encounter Plan of Treatment Upcoming Encounters Date Type Department Care Team (Late st Contact Info) Description 11/05/2023 7:30 AM CDT Office Visit [facility] [place] [address] [facility] [address] [place] [phone] Lina Resendiz PA-C [address] [place] [address] documented as of this encounter Visit Diagnoses Not on filedocumented in this encounter Care Teams Rotating Field Assembler Relationship Specialty Start Date End Date Estrella Day MD PCP - General Family Practice 05/01/14 Austin Lynn MD [address] [place] [place] [address] Assigned Heart and Vascular Provider 01/30/20 08/20/21 Cee Guerra APRN METEOROLOGY FACULTY MEMBER [address] [place] [address] Assigned Heart and Vascular Provider 08/21/21 07/07/22 Austin Lynn MD [address] [place] [id number] MD Cardiovascular Disease 05/23/22 Austin Lynn MD [address] [place] [address] Assigned Heart and Vascular Provider 08/12/22 Lina Resendiz PA-C [address] [place] [address] Physician Mail Order Sorter Cardiovascular Disease 09/28/23 documented as of this encounter
--- OUTSIDE RECORDS SUMMARY | 2023-10-08 09:00 | XMS_ITS | Encounter Summary ---
Author Organization [facility] Address [address] [place] [address]. [place] [address] Care Team Providers Care Formulation Chemist Name Role Phone Estrella Day MD Primary Care Provider [phone] Austin Lynn MD Unavailable [phone] Austin Lynn MD Unavailable [phone] Reason for Visit * Reason Onset Date Comments Refill Request 09/06/2023 Simvastatin and Metoprolol Encounter Details Date Type Department Care Team (Late st Contact Info) Description 09/06/2023 [facility] [address] [place] [address] Austin Lynn MD [address] [facility] [address] [place] [address] Refill Request (Simvastatin and Metoprolol) Social History Tobacco Use Types Packs/Day Years [...] encounter Miscellaneous Notes * Telephone Encounter - Fern Madrid RN - 09/06/2023 1:02 PM CDT [facility] Cardiology Refill Guideline reviewed. Medication meets criteria for refill. * Addendum Note - Fern Madrid RN - 09/06/2023 12:54 PM CDTAddended by: FERN MADRID on: 09/06/2023 01:04 PM Modules accepted: Orders documented in this encounter Plan of Treatment Upcoming Encounters Date Type Department Care Team (Late st Contact Info) Description 11/05/2023 7:30 AM CDT Office Visit [facility] [address] [facility] [address] [place] [phone] Lina Resendiz PA-C [address] [place] [address] documented as of this encounter Visit Diagnoses Diagnosis Paroxysmal atrial fibrillation (H) Atrial fibrillation documented in this encounter Care Teams Formulation Chemist Relationship Specialty Start Date End Date Estrella Day MD PCP - General Family Practice 05/01/14 Austin Lynn MD [address] [place] [address] Cardiovascular Disease 05/23/22 Austin Lynn MD [address] [place] [address] Assigned Heart and Vascular Provider 08/12/22 documented as of this encounter
--- OUTSIDE RECORDS SUMMARY | 2023-10-08 09:00 | XMS_ITS | Encounter Summary ---
Author Organization [place] Address [address] [place] [address]. [place] [address] Care Team Providers Care Small Arms Artillery Repairer Name Role Phone Omega Hester MD Primary Care Provider [phone] Austin Lynn MD Unavailable [phone] Cee Guerra APRN LITIGATION MANAGER Unavailable [phone] Austin Lynn MD Unavailable Austin Lynn MD Unavailable [phone] Lina ResendizC Unavailable Encounter Details Date Type Department Care Team (Late st Contact Info) Description 03/18/2013 Office Visit-[facility] [place] [address] [place] [address] Austin Lynn MD [address] [place], [place] [id number] Social History Tobacco Use Types Packs/Day Years Used Date Smoking Tobacco: Never Assessed Sex and Gender Information Value Date Recorded Sex Assigned at Female 08/08/2022 4:45 PM CDT Gender Identity Female 08/08/2022 4:45 PM CDT Sexual Orientation Not on file documented as of this encounter Progress Notes * Austin Lynn MD - 03/21/2013 10:08 AM CST Progress Note Created by: Austin Lynn M.D. DATE: 03/18/2013 ERIK ELLIOTT DATE OF : 1950 AGE: [age] years old Referring Physician: OMEGA HESTER Referring Clinic: [facility] CURRENT DIAGNOSES 1. - Atrial Fibrillation, 427.31 2. - Hypertension, benign, 401.1 3. Bruit, 785.9 4. - Hypercholesterolemia, 272.0 ALLERGIES NKA MEDICATIONS (prior to changes made today) 1. Daily Multivitamin Tablet, 1 p.o. daily 2. Flaxseed Oil 1,000 Mg Capsule, 1 p.o. daily 3. metoprolol tartrate 100 mg tablet, 1 p.o. twice daily 4. simvastatin 40 mg tablet, 1 p.o. qHS CHIEF COMPLAINTS Followup of - Atrial Fibrillation HISTORY OF PRESENT ILLNESS I had the opportunity to see Ms. Erik Elliott in Cardiology Clinic today for reevaluation of atrial fibrillation and dyslipidemia. She has hypertension on metoprolol. It seems that she had several episodes of atrial fibrillation back in 2001 and 2002 but since then has not had any symptoms of recurrent atrial fibrillation and has not noticed an irregular pulse. She takes her pulse regularly to check for arrhythmias. I heard a bruit last year and checked a carotid ultrasound. Fortunately, that showed no evidence ofsevere carotid blockages. She did have some plaque formation there. She was a smoker for 20 years and quit in 1995. She has hypertension and dyslipidemia. Her blood pressure has been well controlled in the past, including at her primary care visit in November. Her cholesterol numbers are well controlled based on labs from November 11, 2012, at her primary care office. Her LDL was 94, HDL 55, and triglycerides 102. On examination today her blood pressure was 140/72, heart rate 60, and weight 161 pounds. Her lungsare clear. Heart rhythm is regular. She has no cardiac murmurs. She does have a fairly high pitchedleft-sided carotid bruit. I am not sure exactly where that is coming from but it does not seem to be resulting from any severe left internal carotid disease. 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 EYES wears eye glasses/contact lenses, no blurred vision, eye pain, or discharge. EARS, NOSE, THROAT, MOUTH denies any hearing loss, epistaxis, hoarseness or difficulty speaking. RESPIRATORY denies dyspnea, snoring, cough, wheezing or hemoptysis. CARDIOVASCULAR denies chest discomfort, denies palpitations, denies dizziness, denies edema ABDOMINAL denies ulcer disease, hematochezia or melena. GENITOURINARY-FEMALE positive for frequency, positive for nocturia, regular periods MUSCULOSKELETAL denies any history of venous insufficiency, arthritic symptoms or back problems. NEUROLOGICAL denies any history of recurrent strokes, TIA, or seizure disorder. PSYCHIATRIC denies any history of depression, substance abuse or change in cognitive functions. ENDOCRINE denies any history of thyroid disease or diabetes mellitus. HEMATOLOGICAL/IMMUNOLOGIC denies any food allergies, seasonal allergies, bleeding disorders. PHYSICAL EXAMINATION VITAL SIGNS: Blood Pressure: 140/72Sitting, Left arm, regular cuff Pulse- 60.00/min. Weight- 161.20 lbs. Height- 66 BMI Measurement: 26 CONSTITUTIONAL cooperative, alert and oriented,well developed, well nourished, in no acute distress. SKIN warm and dry to touch, no apparent skin lesions, or masses noted. HEAD normocephalic, atraumatic EYES Pupils equal and round, conjunctivae and lids unremarkable, sclera white, no xanthalasma ENT no pallor or cyanosis, dentition good CHEST clear to auscultation, mild parasternal tenderness [...] time, person and place. MEDICATIONS UPDATED/STARTED TODAY: MEDICATIONS REFILLED/STOPPED TODAY: Aspirin Childrens 81 mg tablet, chewable 1 p.o. daily #30 (Thirty) Patient Terminated IMPRESSIONS/PLAN Ms. Erik Elliott is a 62-year-old woman with hypertension, dyslipidemia, and a history of smokingwho has had a couple of episodes of atrial fibrillation but no recognized episodes since 2002. She seems to be doing well without any concerning cardiac symptoms although her blood pressure is borderline high. I asked her to get her blood pressure taken a couple of times in the near future and let us know if it continues to run high, in which case I would probably add a small dose of lisinopril 10 mg q.d. to her program. Her simvastatin seems to be working quite well with appropriate cholesterol numbers. I will plan to see her back again in one year. TODAYS ORDERS 1. F/U with Austin Lynn MD 1 year Austin Lynn M.D. documented in this encounter Plan of Treatment Upcoming Encounters Date Type Department Care Team (Late st Contact Info) Description 11/05/2023 7:30 AM CDT Office Visit [facility] [place] [address] [place] [phone] Lina Resendiz PA-C [address] [place] [address] documented as of this encounter Visit Diagnoses Not on filedocumented in this encounter Care Teams Small Arms Artillery Repairer Relationship Specialty Start Date End Date Omega Hester MD PCP - General Family Practice 05/01/14 Austin Lynn MD [address] [place] [address] Assigned Heart and Vascular Provider 01/30/20 08/20/21 Cee Guerra APRN CNP [address] [place] [address] Assigned Heart and Vascular Provider 08/21/21 07/07/22 Austin Lynn MD [address] [place] [id number] Cardiovascular Disease 05/23/22 Austin Lynn MD [address] [place] [id number] Assigned Heart and Vascular Provider 08/12/22 Lina Resendiz PA-C [address] [place] [id number] Physician Gate Services Supervisor Cardiovascular Disease 09/28/23 documented as of this encounter
--- OUTSIDE RECORDS SUMMARY | 2023-10-08 09:00 | XMS_ITS | Encounter Summary ---
Author Organization [place] Address [address] [place] [address] Care Team Providers Care Diesel Engine Tester Name Role Phone Estrella Day MD Primary Care Provider [phone] Austin Lynn MD Unavailable Cee Guerra APRN SPOOL CLEANER Unavailable [phone] Austin Lynn MD Unavailable Austin Lynn MD Unavailable Lina ResendizC Unavailable Encounter Details Date Type Department Care Team (Late st Contact Info) Description 02/24/2003 Office Visit-[facility] [address] [place] [address] Unknown, MD Reece Social History Tobacco Use Types Packs/Day Years Used Date Smoking Tobacco: Never Assessed Sex and Gender Information Value Date Recorded Sex Assigned at Female 08/08/2022 4:45 PM CDT Gender Identity Female 08/08/2022 4:45 PM CDT Sexual Orientation Not on file documented as of this encounter Progress Notes * Unknown, MD Reece - 02/26/2003 1:54 PM CST Progress Note Created by: Diana Little DATE: 02/24/2003 ZAKI ELLIOTT DATE OF : 1950 AGE: [age] years old Referring Physician: SELF CURRENT DIAGNOSES 1. - Atrial Fibrillation, 427.31 ALLERGIES NKA MEDICATIONS 1. Lo/Ovral 30 mcg-0.3 mg, Take as Directed 2. Metoprolol Tartrate 50 Mg, 1 p.o. b.i.d. CHIEF COMPLAINTS Heart beating fast. HISTORY OF PRESENT ILLNESS Ms. Elliott is a very delightful 52-year-old female who presents today for follow up regarding atrial fibrillation. As you may recall, her only cardiac history is significant for atrial fibrillation, which first developed in the beginning of July 2002 when she was on a trip to [facility]. She has subsequently had two recurrences, both of which she can relate to stressful situations. The last was this past . She took two of her metoprolol, which were dispensed by Dr. Fortune. She did not experience relief and therefore presented to the Emergency Room. She was found to have a ventricular rate of 180 beats per minute. She had atrial fibrillation with rapid ventricular response. She was subsequently cardioverted with 100 joules and was brought back into normal sinus rhythm at a rate of 67 beats per minute. She was then discharged and told to follow up accordingly. She reports that she has been very diligent about caffeine intake. She only has one cup of coffee per day. She does not drink any alcohol and does not smoke tobacco. She does not report ever having high blood pressure, although in our office her blood pressure has consistently been in the 160s/90s.By my recheck today, her blood pressure was 172/94. Her only medication is the p.r.n. metoprolol and control pills. She reports that she feels quite well. Her only symptom when she is in atrial fibrillation is palpitations. She does not have any chest pain or pressure. She has no syncope, presyncope, paroxysmal nocturnal dyspnea, orthopnea, and no pedal edema. EKG today shows she is in normal sinus rhythm with aheart rate of 76 beats per minute. PAST HISTORY Past Cardiac Illnesses: palpitations, atrial [...] children in own home; Place of - [place]; Hours Worked - 40 hours per week; Spouse's Occupation - contractor; REVIEW OF SYSTEMS GENERAL denies recent weight loss, weight gain, fever or chills or change in exercise tolerance. INTEGUMENTARY denies any change in hair or nails, rashes, or skin lesions. EYES wears eye glasses/contact lenses EARS, NOSE, THROAT, MOUTH denies any hearing loss, epistaxis, hoarseness or difficulty speaking. RESPIRATORY dyspnea CARDIOVASCULAR palpitations, chest discomfort, dizziness ABDOMINAL denies ulcer disease, hematochezia or melena. [...] disorders. PHYSICAL EXAMINATION VITAL SIGNS: Blood Pressure: 164/92 Sitting, Left arm, regular cuff Pulse- 76.00/min. Weight- 134.00 lbs. Height- 65.50 Temperature- .00 CONSTITUTIONAL cooperative, alert and oriented,well [...] and place. MEDICATIONS UPDATED TODAY: Metoprolol Tartrate 50 Mg, 1 p.o. b.i.d., #60 IMPRESSIONS/PLAN Atrial fibrillation. This patient is currently in normal sinus rhythm. I think she likely will needa daily medication to suppress these episodes as p.r.n. metoprolol does not seem to be working any longer. She also needs something to further control her blood pressure, which may also help to prevent recurrent episodes of atrial fibrillation. I will have her take her metoprolol 50 mg b.i.d. and follow up with me next week. She wished to follow up prior to leaving for her vacation. I will see her next Sunday to readdress her blood pressure and see if she has had any recurrent episodes. TODAYS ORDERS 1. Return Visit 1 week Diana Little documented in this encounter Plan of Treatment Upcoming Encounters Date Type Department Care Team (Late st Contact Info) Description 11/05/2023 7:30 AM CDT Office Visit [facility] [place] [address] [place] [phone] Lina Resendiz PA-C [address] [place] [id number] documented as of this encounter Visit Diagnoses Not on filedocumented in this encounter Care Teams Diesel Engine Tester Relationship Specialty Start Date End Date Estrella Day MD PCP - General Family Practice 05/01/14 Austin Lynn MD [address] [place] [address] Assigned Heart and Vascular Provider 01/30/20 08/20/21 Cee Guerra APRN SPOOL CLEANER [address] [place], [place] [id number] Assigned Heart and Vascular Provider 08/21/21 07/07/22 Austin Lynn MD [address] [place] [address] Cardiovascular Disease 05/23/22 Austin Lynn MD [address] [place] [address] Assigned Heart and Vascular Provider 08/12/22 Lina Resendiz PA-C [address] [place] [address] Physician Steel Sampler Cardiovascular Disease 09/28/23 documented as of this encounter
--- OUTSIDE RECORDS SUMMARY | 2023-10-08 09:00 | XMS_ITS | Encounter Summary ---
Author Organization [place] Address [address] [place] [address] Care Team Providers Care Neuroradiologist Name Role Phone Estrella Day MD Primary Care Provider [phone] Austin Lynn MD Unavailable Cee Guerra APRN LOG DATA TECHNICIAN Unavailable [phone] Austin Lynn MD Unavailable Austin Lynn MD Unavailable Lina ResendizC Unavailable [phone] Encounter Details Date Type Department Care Team (Late st Contact Info) Description 11/04/2001 Office Visit-[facility] [address] [place] [address] Unknown, MD Reece Social History Tobacco Use Types Packs/Day Years Used Date Smoking Tobacco: Never Assessed Sex and Gender Information Value Date Recorded Sex Assigned at Female 08/08/2022 4:45 PM CDT Gender Identity Female 08/08/2022 4:45 PM CDT Sexual Orientation Not on file documented as of this encounter Progress Notes * Unknown, MD Reece - 02/16/2004 3:19 PM CST DATE: 11/04/2001 ZAKI ELLIOTT DATE OF : 1950 AGE: [age] years old Referring Physician: LUDMILA IBRAHIM CURRENT DIAGNOSES 1. - Atrial Fibrillation, 427.31 ALLERGIES NKA MEDICATIONS 1. Lo/Ovral 30 mcg-0.3 mg, Take as Directed CHIEF COMPLAINTS Racing heartbeat, irregular pulse after HISTORY OF PRESENT ILLNESS Mrs. Elliott is a 51-year-old female who is not accompanied by her today. While she was in [place], she was under a tremendous amount of stress with an illness of one of her relatives and was seen by a local physician who documented an irregularity of the heart beat but she tells me that no tests were done. She was sent home on Lanoxin .25mg per day which she continues to take as of today. She actually noticed that her heart was beating very fast and her pulse was irregular and she knew that something was wrong but otherwise did not feel short of breath, light-headed or dizzy. She had no chest pains. Interestingly, she never felt weak or tired. She relates an episode of a similar occurrence 5 years ago where atrial fibrillation with a rapid ventricular response rate was clearly documented (she brought records). She was hospitalized in [place] for a day or two and then converted spontaneously. An echocardiogram was recommended by [facility] but was never followed through because the patient continued to feel well. She claims herself to otherwise be healthy. Ever since this episode in [place], she has curtailed her activity levels and cut her coffee intakefrom 4 cups a day down to 1 cup a day. She has a beer occasionally but is not sensitive to alcohol.I should add that her first episode of atrial fibrillation occurred shortly after having sex with her . She has no symptoms of thyroid disease and her weight is stable. She exercises regularly. She quit smoking in 1991 but has never had an lung disease. I am told that her blood pressure and her cholesterol are both excellent having just applied for life insurance and had her premiums actually reducedbecause of her healthy status. 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 CARDIOVASCULAR negative for [...] disorders. PHYSICAL EXAMINATION VITAL SIGNS: Blood Pressure: 168/84 Sitting, Right arm, regular cuff Pulse- 72.00/min. Weight- 130.00 lbs. Height- .00 Temperature- .00 CONSTITUTIONAL cooperative, alert and oriented,well developed, well nourished, in no acute distress. SKIN warm and dry to touch, no apparent skin lesions, or masses noted. HEAD normocephalic, atraumatic EYES PERRL, EOMS intact without nystagmus ENT ears, nose and throat unremarkable NECK carotid pulses are full and equal bilaterally, JVP normal, no carotid bruit, no thyromegaly CHEST normal symmetry, no tenderness to palpation, normal respiratory excursion, no intercostal retraction, no use of accessory muscles, clear to auscultation and percussion. CARDIAC grade 1/6 systolic murmur, regular rhythm ABDOMEN abdomen soft, bowel sounds normoactive, no masses, no hepatosplenomegaly, non- tender, no bruits PERIPHERAL PULSES pulses full and equal in all extremities, no bruits auscultated. EXTREMITIES & BACK no clubbing, cyanosis or edema NEUROLOGICAL no gross motor deficits noted, affect appropriate, oriented to time, person and place. MEDICATIONS UPDATED TODAY: Digoxin 0.25 mg, 1 p.o. q.d., 0 Lo/Ovral 30 mcg-0.3 mg, Take as Directed, 0 IMPRESSIONS/PLAN 1. Atrial fibrillation that has probably now occurred on two occasions. The second episode was not documented but she felt it was a similar episode as in 1996. 2. Very short ejection murmur by exam. RECOMMENDATION: 1. She will have an echocardiogram done to make sure there is no structural heart disease. 2. I have stopped the Lanoxin because Lanoxin is a poor drug when it comes to trying to prevent episodes of fibrillation even though it is a reasonable drug to control heart rate. 3. If her episodes of atrialfibrillation increases to such a point where she feels something needs to be done about it, antiarrhythmic suppressant therapy would then be indicated. If not, I will see her on a PRN basis to talk about drugs or ablation therapy if and when appropriate. We did talk about the number of triggers including fatigue, alcohol, caffeine and stress all of which may have had some input into her most recent episode of fibrillation but may be triggers as well in the future. She is welcomed to see me at any time in the future if further questions should arise or recurrences should happen. TODAYS ORDERS 1. 2D, color flow, doppler 1 month 2. Return prn Taj Fortune M.D. Document electronically signed by : Taj Fortune M.D. Date : 02/16/2004 Time : 3:19:53 PM documented in this encounter Plan of Treatment Upcoming Encounters Date Type Department Care Team (Late st Contact Info) Description 11/05/2023 7:30 AM CDT Office Visit [facility] [place] [address] [place] [phone] Lina Resendiz PA-C [address] [place] [id number] documented as of this encounter Visit Diagnoses Not on filedocumented in this encounter Care Teams Neuroradiologist Relationship Specialty Start Date End Date Estrella Day MD PCP - General Family Practice 05/01/14 Austin Lynn MD [address] [place], [place] [id number] Assigned Heart and Vascular Provider 01/30/20 08/20/21 Cee Guerra APRN LOG DATA TECHNICIAN [address] [place], [place] [address] Assigned Heart and Vascular Provider 08/21/21 07/07/22 Austin Lynn MD [address] [place] [id number] MD Cardiovascular Disease 05/23/22 Austin Lynn MD [address] [place] [id number] Assigned Heart and Vascular Provider 08/12/22 Lina Resendiz PA-C [address] [place] [id number] Physician Junior Mechanical Engineer Cardiovascular Disease 09/28/23 documented as of this encounter
--- OUTSIDE RECORDS SUMMARY | 2023-10-08 09:00 | XMS_ITS | Encounter Summary ---
Author Organization [employer] Address [address] [place] [id number] Care Team Providers Care Bilingual Spanish Inbound Sales Name Role Phone Estrella Day MD Primary Care Provider [phone] Austin Lynn MD Unavailable Cee Guerra APRN TOOL POLISHER Unavailable [phone] Austin Lynn MD Unavailable Austin Lynn MD Unavailable Lina ResendizC Unavailable Encounter Details Date Type Department Care Team (Late st Contact Info) Description 05/20/2003 Office Visit-[facility] [address] [place] [address] Unknown, MD Reece Social History Tobacco Use Types Packs/Day Years Used Date Smoking Tobacco: Never Assessed Sex and Gender Information Value Date Recorded Sex Assigned at Female 08/08/2022 4:45 PM CDT Gender Identity Female 08/08/2022 4:45 PM CDT Sexual Orientation Not on file documented as of this encounter Progress Notes * Unknown, MD Reece - 05/22/2003 9:40 AM CST Progress Note Created by: Diana Little DATE: 05/20/2003 ZAKI ELLIOTT DATE OF : 1950 AGE: [age] years old Referring Physician: SANTHOSH CEBALLOS Referring Clinic: [facility] CURRENT DIAGNOSES 1. - Atrial Fibrillation, 427.31 2. - Hypertension, benign, 401.1 ALLERGIES NKA MEDICATIONS 1. Lo/Ovral 30 mcg-0.3 mg, Take as Directed 2. Metoprolol Tartrate 100 mg, 1 p.o. b.i.d. CHIEF COMPLAINTS f/u meds HISTORY OF PRESENT ILLNESS Ms. Elliott is a very delightful 52-year-old female who presents today for follow up regarding medication questions. As you may recall, her history is significant for atrial fibrillation and hypertension. Her primary care physician requested that she follow up in our clinic for her blood pressure. At her last visit, she was hypertensive and I increased her metoprolol to 100 mg b.i.d. She reports th at since this increase she has noticed some chest soreness, which occurs in a random fashion. It isnot related to exertion and is not associated with other symptoms, such as shortness of breath, neck, jaw or arm pain, nausea or diaphoresis. Over the past month, she has had about three days of chest soreness. It seems to be worse with a deep breath and leaning forward, but she otherwise does not note anything that makes it better or worse. The pain is somewhat reproducible upon palpation. She reports it was quite bad yesterday but it has improved much today. She denies any recurrence of her atrial fibrillation and has otherwise felt quite well. She denies the presence of dyspnea on exertionor at rest. She has no syncope, presyncope, paroxysmal nocturnal dyspnea, orthopnea or pedal edema. PAST HISTORY Past Cardiac Illnesses: palpitations, atrial fibrillation FAMILY HISTORY: Father - Age 65, ETOH abuse and [place]; Mother - Age 67, multiple sclerosis and [...] children in own home; Place of - [place]; Hours Worked - 40 hours per week; [...] disorders. PHYSICAL EXAMINATION VITAL SIGNS: Blood Pressure: 150/90 Sitting, Left arm, regular cuff / Pulse- .00/min. Weight- 137.40 lbs. Height- .00 Temperature- .00 CONSTITUTIONAL cooperative, [...] appropriate, oriented to time, person and place. <FONT COLOR=#[id number]><B><FONT FACE=System><FONT POINT=10> MEDICATIONS UPDATED TODAY: IMPRESSIONS/PLAN <FONT COLOR=#[id number]></B><FONT FACE=Psychology Teacher New><FONT POINT=10>1. Chest pain, which is quite atypical. This does not sound cardiac in nature and the patient has no history of coronary disease. This is a very atypical pattern for this to be angina. I was able to reproduce the pain upon palpation and I therefore feel this is most likely musculoskeletal in origin. I advised the patient to take some ibuprofen to see if this makes a difference. At this time, I will not take her off her metoprolol. She is to follow up in about one month with either myself or her primarycare physician to reassess this. 2. Hypertension. On initial presentation today, her blood pressurewas quite elevated at 150/90. The patient has been getting her blood pressure checked weekly with her primary care physician and brings in those numbers for my review. They have all been in the 130/70 range. She does not wish to make further medication changes today but will continue to follow her blood pressure over the next month and will consider an additional medication in one month should she continue to be hypertensive. 3. Atrial fibrillation, currently under very good control. She has not had any recurrence. <FONT COLOR=#[id number]><B><FONT FACE=System><FONT POINT=10> Diana Little documented in this encounter Plan of Treatment Upcoming Encounters Date Type Department Care Team (Late st Contact Info) Description 11/05/2023 7:30 AM CDT Office Visit [facility] [address] [facility] [address] [place] [phone] Lina Resendiz PA-C [address] [id number] documented as of this encounter Visit Diagnoses Not on filedocumented in this encounter Care Teams Bilingual Spanish Inbound Sales Relationship Specialty Start Date End Date Estrella Day MD PCP - General Family Practice 05/01/14 Austin Lynn MD [address] [place] [address] Assigned Heart and Vascular Provider 01/30/20 08/20/21 Cee Guerra APRN TOOL POLISHER [address] [place] [address] Assigned Heart and Vascular Provider 08/21/21 07/07/22 Austin Lynn MD [address] [place] [address] Cardiovascular Disease 05/23/22 Austin Lynn MD [address] [place] [id number] Assigned Heart and Vascular Provider 08/12/22 Lina Resendiz PA-C [address] [place] [id number] Physician Blind Hooker Cardiovascular Disease 09/28/23 documented as of this encounter
--- NOTE | 2023-10-08 09:15 | CRLHL7_ITS ---
For Patients: As a result of the Century Cures Act, medical imaging exams and procedure reports are released immediately into your electronic medical record. You may view this report before your referring provider. If you have questions, please contact your health care provider. BILATERAL SCREENING MAMMOGRAM WITH COMPUTER-AIDED DETECTION AND TOMOSYNTHESIS TECHNIQUE: CC and MLO views were obtained. These mammographic images have been obtained using full-field digital technique. These mammographic images were interpreted with the benefit of computer-aided detection. Breast Tomosynthesis was used in this interpretation. COMPARISON FILM: 10/05/22, 09/01/21, 04/29/20. FINDINGS: There are scattered areas of fibroglandular density. IMPRESSION: There is no radiographic evidence for malignancy. ASSESSMENT: BI-RADS Category 1: Negative RECOMMENDATION: Routine screening mammogram in 1 year. A lay language report of this examination will be provided to the patient. Devin Reyes M.D. Diagnostic Radiologist [email or web address] SP/Dictated by: Devin Reyes MD @ 10/08/2023 9:51:00 AM (Electronically Signed)
== END 2023-10-08 08:57 | disposition home or self-care (01) ==
LOC: MAMMO 08:57
PROVIDERS: PCP Family Medicine; Visit Provider Family Medicine
DX: Z12.31 Encounter for screening mammogram for malignant neoplasm of breast (principal)
CPT/HCPCS: 77063; 77067

== ENCOUNTER 2025-02-10 09:24 | Outpatient (CLI) | payer MEDICARE, SELFPAY ==
--- NOTE | 2025-02-10 09:45 | CRLHL7_ITS ---
For Patients: As a result of the Century Cures Act, medical imaging exams and procedure reports are released immediately into your electronic medical record. You may view this report before your referring provider. If you have questions, please contact your health care provider. INDICATION: BILATERAL SCREENING MAMMOGRAM, ASYMPTOMATIC 74 Y/O FEMALE COMPARISON: 10/08/23, 10/05/22, 09/01/21 TECHNIQUE: Digital mammogram in CC and MLO projections including computer-aided detection (CAD) and tomosynthesis. BREAST COMPOSITION: There are scattered areas of fibroglandular density. FINDINGS: No suspicious findings. ASSESSMENT: BI-RADS 1 Negative RECOMMENDATION: Annual screening mammogram. A lay language report of this examination will be provided to the patient. Dictated by: Devin Reyes MD @ 02/10/2025 11:09:50 (Electronically Signed)
== END 2025-02-10 09:25 | disposition home or self-care (01) ==
LOC: MAMMO 09:26
PROVIDERS: PCP Family Medicine; Visit Provider Family Medicine
DX: Z12.31 Encounter for screening mammogram for malignant neoplasm of breast (principal)
CPT/HCPCS: 77063; 77067